=== PATIENT | female | born 1960 | race Caucasian/White ===

== ENCOUNTER 2017-08-12 05:37 | Outpatient (CLI) | payer BC ==
[~2017-08-12] VITALS: Ht 162.6 cm; Wt 68.9 kg
[2017-08-12] MEDS ORDERED: FENT1PAT6 TD (09:18)
[2017-08-12] MEDS ORDERED: LEVO50TA6 PO (09:18)
[2017-08-12] MEDS ORDERED: FENT1PAT8 TD (09:18)
[2017-08-12] MEDS ORDERED: BUDE10.2 IH (09:19)
[2017-08-12] MEDS ORDERED: ESTR1PAT53 TD (09:19)
[2017-08-12] MEDS ORDERED: MORP-33 PO (09:19)
[2017-08-12] MEDS ORDERED: CHOL500049 PO (09:19)
[2017-08-12] MEDS ORDERED: DULO60CA6 PO (09:19)
[2017-08-12] MEDS ORDERED: CYCL10TA9 PO (09:19)
== END 2017-08-12 09:49 ==
LOC: PREOP 05:37
PROVIDERS: ATTEND Orthopaedic Surgery
DX: Z01.818 Encounter for other preprocedural examination (principal); M54.9 Dorsalgia, unspecified

== ENCOUNTER 2017-08-23 05:59 | Day surgery (SDC) | payer BC ==
[~2017-08-23] VITALS: Ht 162.6 cm; Wt 68.9 kg
[~2017-08-23 05:59] MED LIST: BUDE10.2 IH; CHOL500049 PO; CYCL10TA9 PO; DULO60CA6 PO; ESTR1PAT53 TD; FENT1PAT6 TD; FENT1PAT8 TD; LEVO50TA6 PO; MORP-33 PO
--- OUTSIDE RECORDS SUMMARY | 2017-08-23 06:03 | XMS REPORT ---
Author Author [facility] Medical Staff Organization [facility] Address [address] [place], [place] [address] Phone [phone] Care Team Providers Care Railroad Car Repair Supervisor Name Role Phone VIVIAN CABA, TATI PP [phone] Summary purpose CCDA Sent to [facility] Chief Complaint and Reason for Visit No authorized Reason for Visit (Admitting Diagnosis) is available for this visit. Problem list No authorized problems tracked for continuity of care are available for this visit. Encounters No authorized problems tracked for encounter diagnoses are available for this visit. Medications No medications recorded for this patient visit Allergies, adverse reactions, alerts Allergen Category Ingredient Status Reaction Severity Onset Penicillins Drug Penicillins Active Increased heart rate Adolescence Codeine Drug Codeine Active Headache Adolescence Demerol Drug Demerol Active Unknown Adolescence Demerol Drug meperidine Active Unknown Adolescence fentanyl Drug fentanyl Active Weakness Adolescence Cephalexin Drug Cephalexin Active Unknown Adolescence Erythromycin Base Drug Erythromycin Base Active Increased heart rate Adolescence Immunizations No immunizations recorded for this patient visit Relevant diagnostic tests and/or laboratory data No authorized results are available for this patient visit History of procedures Procedure Code Code Type Description Date Performed Performing Physician 63980 CPT-4 N BLOCK, LUMBAR/THORACIC 12-25-2015 AYSHA ADAN J1040 CPT-4 METHLPREDNISOLONE ACETATE 12-25-2015 AYSHA ADAN Q9967 CPT-4 LOCM 300-399MG/ML IODINE,1ML 12-25-2015 AYSHA ADAN 75046 CPT-4 FLUOROGUIDE FOR SPINE INJECT 12-25-2015 AYSHA ADAN Functional status No functional or cognitive status observations are available for this visit. Vital signs No authorized vital signs are available for this visit. Social history No Social History or smoking status observations were recorded for this visit. ( Unknown if ever smoked.) Treatment Plan No treatment plan text is available for this visit. Hospital discharge instructions No discharge instruction text is available for this visit.
--- OUTSIDE RECORDS SUMMARY | 2017-08-23 06:03 | XMS REPORT ---
Author Author [facility] Medical Staff Organization [facility] Address [address] [place], [place] [address] Phone [phone] Care Team Providers Care Summer School Coordinator Name Role Phone VIVIAN CABA, TATI PP [phone] Summary purpose CCDA Sent to [facility] Chief Complaint and Reason for Visit No [...] visit Relevant diagnostic tests and/or laboratory data RESULTS CBC [id number]:42:00 Result Normal Range Units WBC 5.85 4.60-10.20 x 103/uL RBC L 3.92 4.04-6.13 x 106/uL Hemoglobin L 11.7 12.2-18.1 g/dl Hematocrit L 34.6 37.7-53.7 % MCV 88.3 80.0-97.0 FL MCH 29.8 27.0-31.2 pg MCHC 33.8 31.8-35.4 g/dl RDW 13.4 11.6-14.8 % Platelets 285 142-424 x 103/uL MPV 9.5 9.4-12.4 FL Manual Diff Not Indicated Neutrophil % 53.0 37-80 % Neutrophils 3.10 2.0-6.9 x 103/uL Lymphocyte % 32.6 10-50 % Lymphocytes 1.91 0.6-3.4 x 103/uL Monocyte % 10.3 0-12 % Monocytes 0.60 0.0-1.0 x 103/uL Eosinophil % 3.6 0-7 % Eosinophils 0.21 0-0.7 x 103/uL Basophil % 0.5 0-2 % Basophils 0.03 0.0-0.1 x 103/uL Hematology Group :42:00 Result Normal Range Units Sed Rate 15 5-20 MM/hr. Chemistry Group :42:00 Result Normal Range Units Glucose 84 70-99 mg/dl BUN 12 7-26 mg/dl Creatinine 0.9 0.6-1.3 mg/dl Sodium 139 136-145 mmol/L Potassium 3.8 3.5-5.1 mmol/L Chloride 106 98-107 mmol/L CO2 27 22-29 mmol/L BUN/Creatinine Ratio 13 7-25 Ratio Calcium 9.2 8.4-10.2 mg/dl Protein Total 6.8 6.4-8.3 g/dl Albumin 3.8 3.5-5.0 g/dl A/G Ratio 1.3 1.2-2.2 Ratio AST 17 5-34 U/L ALT 15 0-55 U/L ALP 72 40-150 U/L Bilirubin Total 0.4 0.2-1.2 mg/dl Osmolality 267 261-280 mOsm/kg Globulin 3.0 2.4-3.5 g/dl CK 68 30-170 U/L CKMB 1.2 <=6 ng/ml Troponin 0.00 <=0.20 ng/ml Magnesium 2.2 1.6-2.8 mg/dl Phosphorus 4.6 2.3-4.7 mg/dl TSH 2.21 0.35-4.94 uIU/mL Reference Lab Group :42:00 EKG See Manual Report Special Chemistry :42:00 Result Normal Range Units Vitamin D 25 L 24.3 30-100 ng/ml History of procedures Procedure Code Code Type Description Date Performed Performing Physician 55093 CPT-4 COMPLETE CBC W/AUTO DIFF WBC 03-25-2016 TATI PARK 79375 CPT-4 COMPREHEN METABOLIC PANEL 03-25-2016 TATI PARK 72150 CPT-4 RBC SED RATE, NONAUTOMATED 03-25-2016 TATI PARK 95266 CPT-4 ASSAY OF CK (CPK) 03-25-2016 [facility] 78834 CPT-4 CREATINE, MB FRACTION 03-25-2016 [facility] 77798 CPT-4 ASSAY OF TROPONIN, QUANT 03-25-2016 [facility] 40872 CPT-4 ASSAY OF VITAMIN D 03-25-2016 [facility] 19050 CPT-4 ASSAY THYROID STIM HORMONE 03-25-2016 [facility] 64253 CPT-4 ASSAY OF MAGNESIUM 03-25-2016 [facility] 76369 CPT-4 ASSAY OF PHOSPHORUS 03-25-2016 [facility] 21072 CPT-4 ELECTROCARDIOGRAM, TRACING 03-25-2016 [facility] 34352 CPT-4 ROUTINE VENIPUNCTURE 03-25-2016 [facility] Functional status No functional or cognitive status [...]
--- OUTSIDE RECORDS SUMMARY | 2017-08-23 06:03 | XMS REPORT ---
Author Author [facility] Medical Staff Organization [facility] Address [address] [place], [place] [address] Phone [phone] Care Team Providers Care Supervisor Farm Equipment Maintenance Name Role Phone VIVIAN CABA, TATI PP [phone] Summary purpose CCDA Sent to [facility] Chief Complaint and Reason for Visit No [...] Relevant diagnostic tests and/or laboratory data RESULTS Hematology Group :53:00 Result Normal Range Units Sed Rate 13 5-20 MM/hr. Chemistry Group :53:00 Result Normal Range Units CRP 0.03 0.00-0.50 mg/dl Reference Lab Group :53:00 Result Normal Range Units KIERA Screen A POSITIVE NEGATIVE TEST PERFORMED AT: [facility] [place] [address] [place] [address] HELLEN TAVERAS DO,MPH KIERA Pattern Reflex H 1:160 titer Reference Range <1:40Negative 1:40-1:80Low Antibody Level >1:80Elevated Antibody Level TEST PERFORMED AT: [facility] [place] [address] [place] [address] HELLEN TAVERAS DO,MPH Special Chemistry :53:00 Result Normal Range Units Vitamin D 25 L 27.3 30-100 ng/ml Vitamin B12 583 967-9011 pg/ml History of procedures Procedure Code Code Type Description Date Performed Performing Physician 82003 CPT-4 RBC SED RATE, NONAUTOMATED 10-30-2015 AYSHA ADAN 46397 CPT-4 ANTINUCLEAR ANTIBODIES 10-30-2015 AYSHA ADAN 73515 CPT-4 C-REACTIVE PROTEIN 10-30-2015 AYSHA ADAN 72547 CPT-4 ASSAY OF VITAMIN D 10-30-2015 AYSHA ADAN 47598 CPT-4 VITAMIN B-12 10-30-2015 AYSHA ADAN 06587 CPT-4 N BLOCK, LUMBAR/THORACIC 10-30-2015 AYSHA ADAN 12711 CPT-4 ROUTINE VENIPUNCTURE 10-30-2015 AYSHA ADAN J1040 CPT-4 METHLPREDNISOLONE ACETATE 10-30-2015 AYSHA ADAN Q9967 CPT-4 LOCM 300-399MG/ML IODINE,1ML 10-30-2015 AYSHA ADAN 37963 CPT-4 ANTINUCLEAR ANTIBODIES (KIERA) 10-30-2015 AYSHA ADAN 60649 CPT-4 FLUOROGUIDE FOR SPINE INJECT 10-30-2015 AYSHA ADAN Functional status No functional or [...]
--- OUTSIDE RECORDS SUMMARY | 2017-08-23 06:03 | XMS REPORT ---
Author Author [facility] Medical Staff Organization [facility] Address [address] [place], [place] [address] Phone [phone] Care Team Providers Care Intake Clerk Name Role Phone VIVIAN CABA, TATI PP [phone] Summary purpose CCDA Sent to [facility] Chief Complaint and Reason for Visit Admit Diagnosis 1 LUMBAGO Problem list No authorized problems tracked for continuity of care are available for this visit. Encounters No authorized problems tracked for encounter diagnoses are available for this visit. Medications No home medications recorded for this patient visit Allergies, [...] Code Type Description Date Performed Performing Physician 91982 CPT-4 N BLOCK LUMBAR/THORACIC 02-06-2015 AYSHA ADAN 01241 CPT-4 FLUOROGUIDE FOR SPINE INJECT 02-06-2015 AYSHA ADAN Functional status No functional or [...]
--- OUTSIDE RECORDS SUMMARY | 2017-08-23 06:03 | XMS REPORT ---
Author Author [facility] Medical Staff Organization [facility] Address [address] [place], [place] [address] Phone [phone] Care Team Providers Care Outsole Cementer Name Role Phone TATI PARK MD, PP [phone] Summary purpose CCDA Sent to [facility] Chief Complaint and Reason for Visit No [...] Code Type Description Date Performed Performing Physician 89607 CPT-4 TD VACCINE NO PRSRV >/=7 IM 09-12-2016 TATI PARK 95316 CPT-4 IRRIG DRUG DELIVERY DEVICE 09-12-2016 TATI PARK Functional status No functional or cognitive status [...]
--- OUTSIDE RECORDS SUMMARY | 2017-08-23 06:03 | XMS REPORT ---
Author Author [facility] Medical Staff Organization [facility] Address [address] [place], [place] [address] Phone [phone] Care Team Providers Care Leather Roller Name Role Phone VIVIAN CABA, TATI [phone] Summary purpose CCDA Sent to [facility] Chief Complaint and Reason for Visit Admit Diagnosis 1 URINARY INCONTINENCE/UNS Problem list No authorized problems tracked for [...] Code Type Description Date Performed Performing Physician 02196 CPT-4 CT ABD & PELV /> REGNS 07-23-2014 TATI PARK Q9967 CPT-4 LOCM 300-399MG/ML IODINE,1ML 07-23-2014 TATI PARK J7050 CPT-4 NORMAL SALINE SOLUTION INFUS 07-23-2014 TATI PARK Functional status No functional or [...]
--- OUTSIDE RECORDS SUMMARY | 2017-08-23 06:03 | XMS REPORT ---
Author Author [facility] Medical Staff Organization [facility] Address [address] [place], [place] [address] Phone [phone] Care Team Providers Care Disability Manager Name Role Phone VIVIAN CABA, TATI [phone] Summary purpose CCDA Sent to [facility] Chief Complaint and Reason for Visit [...] Code Type Description Date Performed Performing Physician 47705 CPT-4 N BLOCK, LUMBAR/THORACIC 11-04-2016 TATI PARK J1040 CPT-4 METHLPREDNISOLONE ACETATE 11-04-2016 TATI PARK Q9967 CPT-4 LOCM 300-399MG/ML IODINE,1ML 11-04-2016 TATI PARK Functional status No functional or [...]
--- OUTSIDE RECORDS SUMMARY | 2017-08-23 06:03 | XMS REPORT ---
Author Author [facility] Medical Staff Organization [facility] Address [address] [place], [place] [address] Phone [phone] Care Team Providers Care Ur Coordinator Name Role Phone VIVIAN CABA, TATI PP [phone] Summary purpose CCDA Sent to [facility] Chief Complaint and Reason for Visit [...] Code Type Description Date Performed Performing Physician 40240 CPT-4 N BLOCK, LUMBAR/THORACIC 01-14-2017 TATI PARK Q9967 CPT-4 LOCM 300-399MG/ML IODINE,1ML 01-14-2017 AYSHA ADAN J1040 CPT-4 METHLPREDNISOLONE ACETATE 01-14-2017 AYSHA ADAN Functional status No functional or [...]
--- OUTSIDE RECORDS SUMMARY | 2017-08-23 06:03 | XMS REPORT ---
Author Author [facility] Medical Staff Organization [facility] Address [address] [place], [place] [address] Phone [phone] Care Team Providers Care Carpenter Assistant Installer Name Role Phone VIVIAN CABA, TATI LAM [phone] Summary purpose CCDA Sent to [facility] Chief Complaint and Reason for Visit Admit Diagnosis 1 TICK BITE Problem list No authorized problems tracked for [...] Code Type Description Date Performed Performing Physician 25810 CPT-4 FRANCISELLA TULARENSIS 10-27-2016 TATI PARK 51262 CPT-4 EHRLICHIA ANTIBODY 10-27-2016 TATI PARK 75827 CPT-4 EHRLICHIA ANTIBODY 10-27-2016 TATI PARK 55289 CPT-4 RICKETTSIA ANTIBODY 10-27-2016 TATI PARK 21560 CPT-4 RICKETTSIA ANTIBODY 10-27-2016 TATI PARK 02048 CPT-4 LYME DISEASE ANTIBODY 10-27-2016 TATI PARK Functional status No functional or [...]
--- OUTSIDE RECORDS SUMMARY | 2017-08-23 06:03 | XMS REPORT ---
Author Author [facility] Medical Staff Organization [facility] Address [address] [place], [place] [address] Phone [phone] Care Team Providers Care Bottom Man Name Role Phone VIVIAN CABA, TATI [phone] Summary purpose CCDA Sent to [facility] Chief Complaint and Reason for Visit Admit Diagnosis 1 VITAMIN B DEFICIENCY NOS Problem list No authorized problems tracked for [...] Relevant diagnostic tests and/or laboratory data RESULTS Special Chemistry [id number]:04:00 Result Normal Range Units Vitamin B12 H 9194 632-4904 pg/ml History of procedures Procedure Code Code Type Description Date Performed Performing Physician 18201 CPT-4 VITAMIN B-12 10-05-2014 TATI PARK 51555 CPT-4 ROUTINE VENIPUNCTURE 10-05-2014 TATI PARK Functional status No functional or [...]
--- OUTSIDE RECORDS SUMMARY | 2017-08-23 06:03 | XMS REPORT ---
Author Author [facility] Medical Staff Organization [facility] Address [address] [place], [place] [address] Phone [phone] Care Team Providers Care Collection Correspondent Name Role Phone VIVIAN CABA, TATI [phone] Summary purpose CCDA Sent to [facility] Chief Complaint and Reason for Visit Admit Diagnosis 1 CHRONIC PAIN LOW BACK PN HYPOTHYROISM Problem list No authorized problems tracked for [...] Code Type Description Date Performed Performing Physician 44158 CPT-4 COMPREHEN METABOLIC PANEL 09-29-2016 TATI PARK 86956 CPT-4 ASSAY OF MAGNESIUM 09-29-2016 TATI PARK 34156 CPT-4 ASSAY THYROID STIM HORMONE 09-29-2016 TATI PARK 82547 CPT-4 LIPID PANEL 09-29-2016 TATI PARK 16036 CPT-4 ROUTINE VENIPUNCTURE 09-29-2016 TATI PARK 17527 CPT-4 COMPLETE CBC W/AUTO DIFF WBC 09-29-2016 TATI PARK Functional status No functional or [...]
--- OUTSIDE RECORDS SUMMARY | 2017-08-23 06:04 | XMS REPORT ---
Author Author [facility] Medical Staff Organization [facility] Address [address] [place], [place] [address] Phone [phone] Care Team Providers Care Certified Physician'S Assistant Name Role Phone VIVIAN CABA, TATI PP [phone] Summary purpose CCDA Sent to [facility] Chief Complaint and Reason for Visit No [...] diagnostic tests and/or laboratory data RESULTS CBC [id number]:58:00 Result Normal Range Units WBC 7.92 4.60-10.20 x 103/uL RBC L 3.94 4.04-6.13 x 106/uL Hemoglobin L 11.5 12.2-18.1 g/dl Hematocrit L 34.7 37.7-53.7 % MCV 88.1 80.0-97.0 FL MCH 29.2 27.0-31.2 pg MCHC 33.1 31.8-35.4 g/dl RDW 14.1 11.6-14.8 % Platelets 297 142-424 x 103/uL MPV 9.5 9.4-12.4 FL Manual Diff Not Indicated Neutrophil % 55.4 37-80 % Neutrophils 4.39 2.0-6.9 x 103/uL Lymphocyte % 31.4 10-50 % Lymphocytes 2.49 0.6-3.4 x 103/uL Monocyte % 7.6 0-12 % Monocytes 0.60 0.0-1.0 x 103/uL Eosinophil % 5.1 0-7 % Eosinophils 0.40 0-0.7 x 103/uL Basophil % 0.5 0-2 % Basophils 0.04 0.0-0.1 x 103/uL Coagulation Group [id number]:58:00 Result Normal Range Units Protime 9.7 9.6-11.9 Sec INR 0.9 PTT 26.7 23-30 Sec Chemistry Group [id number]:00 Result Normal Range Units Glucose 89 70-99 mg/dl BUN 16 7-26 mg/dl Creatinine 0.9 0.6-1.3 mg/dl Sodium 138 136-145 mmol/L Potassium 3.7 3.5-5.1 mmol/L Chloride 102 98-107 mmol/L CO2 28 22-29 mmol/L BUN/Creatinine Ratio 18 7-25 Ratio Calcium 9.4 8.4-10.2 mg/dl Protein Total 6.9 6.4-8.3 g/dl Albumin 3.9 3.5-5.0 g/dl A/G Ratio 1.3 1.2-2.2 Ratio AST 18 5-34 U/L ALT 9 0-55 U/L ALP 63 40-150 U/L Bilirubin Total 0.4 0.2-1.2 mg/dl Osmolality 267 261-280 mOsm/kg Globulin 3.0 2.4-3.5 g/dl Reference Lab Group [id number]:00 EKG See Manual Report History of procedures Procedure Code Code Type Description Date Performed Performing Physician 03142 CPT-4 COMPLETE CBC W/AUTO DIFF WBC 09-12-2015 [facility] 70088 CPT-4 COMPREHEN METABOLIC PANEL 09-12-2015 [facility] 04323 CPT-4 ELECTROCARDIOGRAM, TRACING 09-12-2015 [facility] 62674 CPT-4 PROTHROMBIN TIME 09-12-2015 [facility] 54972 CPT-4 THROMBOPLASTIN TIME, PARTIAL 09-12-2015 [facility] 04789 CPT-4 CHEST X-RAY 09-12-2015 [facility] 24107 CPT-4 ROUTINE VENIPUNCTURE 09-12-2015 [facility] Functional status No functional or cognitive status [...]
--- OUTSIDE RECORDS SUMMARY | 2017-08-23 06:04 | XMS REPORT ---
Author Author [facility] Medical Staff Organization [facility] Address [address] [place], [place] [address] Phone [phone] Care Team Providers Care Copywriting Intern Name Role Phone VIVIAN CABA, TATI LAM [phone] Summary purpose CCDA Sent to [facility] Chief Complaint and Reason for Visit Admit Diagnosis 1 LOW BACK PAIN Problem list No authorized problems tracked for [...] Code Type Description Date Performed Performing Physician 24415 CPT-4 N BLOCK, LUMBAR/THORACIC 08-12-2016 TATI PARK J1040 CPT-4 METHLPREDNISOLONE ACETATE 08-12-2016 TATI PARK Q9967 CPT-4 LOCM 300-399MG/ML IODINE,1ML 08-12-2016 TATI PARK Functional status No functional or [...]
--- OUTSIDE RECORDS SUMMARY | 2017-08-23 06:04 | XMS REPORT ---
Author Author [facility] Medical Staff Organization [facility] Address [address] [place], [place] [address] Phone [phone] Care Team Providers Care Delivery Of Shopping News Name Role Phone VIVIAN CABA, TATI [phone] Summary purpose CCDA Sent to [facility] Chief Complaint and Reason for [...] Code Type Description Date Performed Performing Physician 35879 CPT-4 INJECT SPINE LUMBAR/SACRAL 09-19-2014 TATI PARK J1040 CPT-4 METHYLPREDNISOLONE 80 MG INJ 09-19-2014 TATI PARK Q9967 CPT-4 LOCM 300-399MG/ML IODINE,1ML 09-19-2014 TATI PARK 00068 CPT-4 FLUOROGUIDE FOR SPINE INJECT 09-19-2014 TATI PARK Functional status No functional or [...]
--- OUTSIDE RECORDS SUMMARY | 2017-08-23 06:04 | XMS REPORT ---
Author Author [facility] Medical Staff Organization [facility] Address [address] [place], [place] [address] Phone [phone] Care Team Providers Care Boxing Machine Operator Name Role Phone VIVIAN CABA, TATI [phone] Summary purpose CCDA Sent to [facility] Chief Complaint and Reason for Visit Admit Diagnosis 1 OT SCREEN MAMMOGRAM Problem list No authorized problems tracked for [...] Code Type Description Date Performed Performing Physician 24453 CPT-4 COMP SCREEN MAMMOGRAM ADD-ON 01-15-2015 TATI PARK G0202 CPT-4 SCREENINGMAMMOGRAPHYDIGITAL 01-15-2015 TATI PARK Functional status No functional or [...]
--- OUTSIDE RECORDS SUMMARY | 2017-08-23 06:04 | XMS REPORT ---
Author Author [facility] Medical Staff Organization [facility] Address [address] [place], [place] [address] Phone [phone] Care Team Providers Care Entomology Professor Name Role Phone VIVIAN CABA, TATI [phone] Summary purpose CCDA Sent to [facility] Chief Complaint and Reason for [...] Code Type Description Date Performed Performing Physician 49192 CPT-4 MRI LUMBAR SPINE W/O DYE 06-05-2016 TATI PARK 48430 CPT-4 MRI JNT OF LWR EXTRE W/O DYE 06-05-2016 TATI PARK 63502 CPT-4 MRI JNT OF LWR EXTRE W/O DYE 06-05-2016 TATI PARK Functional status No functional or [...]
--- OUTSIDE RECORDS SUMMARY | 2017-08-23 06:04 | XMS REPORT ---
Author Author [facility] Medical Staff Organization [facility] Address [address] [place], [place] [address] Phone [phone] Care Team Providers Care Full Service Supervisor Name Role Phone VIVAIN CABA, TATI [phone] Summary purpose CCDA Sent to [facility] Chief Complaint and Reason for Visit Admit Diagnosis 1 OTR DISEASES OF LUNG NOS Problem list No authorized problems tracked [...] Code Type Description Date Performed Performing Physician 69874 CPT-4 CT THORAX W/DYE 12-03-2014 TATI PARK Q9967 CPT-4 LOCM 300-399MG/ML IODINE,1ML 12-03-2014 TAIT PARK J7050 CPT-4 NORMAL SALINE SOLUTION INFUS 12-03-2014 TATI PARK Functional status No functional or [...]
--- OUTSIDE RECORDS SUMMARY | 2017-08-23 06:04 | XMS REPORT ---
Author Author [facility] Medical Staff Organization [facility] Address [address] [place], [place] [address] Phone [phone] Care Team Providers Care Piling Setter Name Role Phone VIVIAN CABA, TATI PP [phone] Summary purpose CCDA Sent to [facility] Chief Complaint and Reason for Visit [...] Code Type Description Date Performed Performing Physician 54793 CPT-4 ELECTROCARDIOGRAM REPORT 09-12-2015 TATI PARK Functional status No functional or [...]
--- OUTSIDE RECORDS SUMMARY | 2017-08-23 06:04 | XMS REPORT ---
Author Author [facility] Medical Staff Organization [facility] Address [address] [place], [place] [address] Phone [phone] Care Team Providers Care Business Support Administrator Name Role Phone TATI PARK MD PP [phone] Summary purpose CCDA Sent to [facility] Chief Complaint and Reason for Visit Admit Diagnosis 1 SCRN MAMMO Problem list No authorized problems tracked for [...] Code Type Description Date Performed Performing Physician 63212 CPT-4 SCR MAMMO BI INCL CAD 10-12-2016 TATI PARK Functional status No functional or [...]
--- OUTSIDE RECORDS SUMMARY | 2017-08-23 06:04 | XMS REPORT ---
Author Author [facility] Medical Staff Organization [facility] Address [address] [place], [place] [address] Phone [phone] Care Team Providers Care Freight Coordinator Name Role Phone TATI PARK MD PP [phone] Summary purpose CCDA Sent to [facility] Chief Complaint and Reason for Visit No [...] for this patient visit History of procedures No procedures recorded for this patient visit. Functional status No functional or cognitive status [...]
--- OUTSIDE RECORDS SUMMARY | 2017-08-23 06:04 | XMS REPORT ---
Author Author [facility] Medical Staff Organization [facility] Address [address] [place], [place] [address] Phone [phone] Care Team Providers Care Tyre Builder Name Role Phone VIVIAN CABA, TATI PP [phone] Summary purpose CCDA Sent to [facility] Chief Complaint and Reason for Visit Admit Diagnosis 1 URINARY INCONTINENCE OTH Problem list No authorized problems tracked for [...] Code Type Description Date Performed Performing Physician 83087 CPT-4 US EXAM ABDO BACK WALL COMP 07-10-2014 TATI PARK Functional status No functional or [...]
--- OUTSIDE RECORDS SUMMARY | 2017-08-23 06:04 | XMS REPORT ---
Author Author [facility] Medical Staff Organization [facility] Address [address] [place], [place] [address] Phone [phone] Care Team Providers Care Machine Bookkeeper Name Role Phone VIVIAN CABA, TATI [phone] Summary purpose CCDA Sent to [facility] Chief Complaint and Reason for Visit [...] Code Type Description Date Performed Performing Physician 58271 CPT-4 N BLOCK LUMBAR/THORACIC 02-13-2015 TATI PARK J1040 CPT-4 METHYLPREDNISOLONE 80 MG INJ 02-13-2015 TATI PARK Q9967 CPT-4 LOCM 300-399MG/ML IODINE,1ML 02-13-2015 TATI PARK 78777 CPT-4 FLUOROGUIDE FOR SPINE INJECT 02-13-2015 TATI PARK Functional status No functional or [...]
--- OUTSIDE RECORDS SUMMARY | 2017-08-23 06:04 | XMS REPORT ---
Author Author [facility] Medical Staff Organization [facility] Address [address] [place], [place] [address] Phone [phone] Care Team Providers Care Acquisitions Librarian Name Role Phone TATI PARK MD PP [phone] Summary purpose CCDA Sent to [facility] Chief Complaint and Reason for [...]
--- OUTSIDE RECORDS SUMMARY | 2017-08-23 06:04 | XMS REPORT ---
Author Author [facility] Medical Staff Organization [facility] Address [address] [place], [place] [address] Phone [phone] Care Team Providers Care Major Appliance Assembly Supervisor Name Role Phone VIVIAN CABA, TATI PP [phone] Summary purpose CCDA Sent to [facility] [...] Code Type Description Date Performed Performing Physician 67646 CPT-4 INJECT SACROILIAC JOINT 01-30-2015 AYSHA ADAN J1040 CPT-4 METHYLPREDNISOLONE 80 MG INJ 01-30-2015 AYSHA ADAN Q9967 CPT-4 LOCM 300-399MG/ML IODINE,1ML 01-30-2015 AYSHA ADAN 54606 CPT-4 FLUOROGUIDE FOR SPINE INJECT 01-30-2015 AYSHA ADAN Functional status No functional or [...]
--- OUTSIDE RECORDS SUMMARY | 2017-08-23 06:04 | XMS REPORT ---
Author Author [facility] Medical Staff Organization [facility] Address [address] [place], [place] [address] Phone [phone] Care Team Providers Care Security Compliance Engineer Name Role Phone VIVIAN CABA, TATI [phone] Summary purpose CCDA Sent to [facility] Chief Complaint and Reason for [...] Code Type Description Date Performed Performing Physician J1040 CPT-4 METHLPREDNISOLONE ACETATE 01-29-2016 TATI PARK Q9967 CPT-4 LOCM 300-399MG/ML IODINE,1ML 01-29-2016 TATI PARK 52182 CPT-4 N BLOCK, LUMBAR/THORACIC 01-29-2016 TATI PARK Functional status No functional or [...]
--- OUTSIDE RECORDS SUMMARY | 2017-08-23 06:05 | XMS REPORT ---
Author Author [facility] Medical Staff Organization [facility] Address [address] [place], [place] [address] Phone [phone] Care Team Providers Care Internal Medicine Hospitalist Name Role Phone VIVIAN CABA, TATI [phone] Summary purpose CCDA Sent to [facility] Chief Complaint and Reason for Visit [...] Code Type Description Date Performed Performing Physician 37198 CPT-4 N BLOCK, LUMBAR/THORACIC 10-09-2015 TATI PARK J1040 CPT-4 METHLPREDNISOLONE ACETATE 10-09-2015 TATI PARK Q9967 CPT-4 LOCM 300-399MG/ML IODINE,1ML 10-09-2015 TATI PARK 88780 CPT-4 FLUOROGUIDE FOR SPINE INJECT 10-09-2015 TATI PARK Functional status No functional or [...]
--- OUTSIDE RECORDS SUMMARY | 2017-08-23 06:05 | XMS REPORT ---
Author Author [facility] Medical Staff Organization [facility] Address [address] [place], [place] [address] Phone [phone] Care Team Providers Care Systems Protection Technician Name Role Phone VIVIAN CABA, TATI PP [phone] Summary purpose CCDA Sent to [facility] Chief Complaint and Reason for Visit [...] Code Type Description Date Performed Performing Physician 55999 CPT-4 N BLOCK LUMBAR/THORACIC 02-20-2015 AYSHA ADAN J1040 CPT-4 METHYLPREDNISOLONE 80 MG INJ 02-20-2015 AYSHA ADAN 55624 CPT-4 FLUOROGUIDE FOR SPINE INJECT 02-20-2015 AYSHA ADAN Functional status No functional or [...]
--- OUTSIDE RECORDS SUMMARY | 2017-08-23 06:05 | XMS REPORT ---
Author Author [facility] Medical Staff Organization [facility] Address [address] [place], [place] [address] Phone [phone] Care Team Providers Care Medical Detailist Name Role Phone VIVIAN CABA, TATI [phone] Summary purpose CCDA Sent to [facility] Chief Complaint and Reason for Visit [...] Code Type Description Date Performed Performing Physician 87025 CPT-4 MRI BRAIN W/O & W/DYE 11-01-2015 TATI PARK A9579 CPT-4 ALICIA-BASE MR CONTRAST NOS,1ML 11-01-2015 TATI PARK Functional status No functional or [...]
--- OUTSIDE RECORDS SUMMARY | 2017-08-23 06:05 | XMS REPORT ---
Author Author [facility] Medical Staff Organization [facility] Address [address] [place], [place] [address] Phone [phone] Care Team Providers Care Corporate Development Manager Name Role Phone VIVIAN CABA, TATI PP [phone] Summary purpose CCDA Sent to [facility] Chief Complaint and Reason for Visit [...] Code Type Description Date Performed Performing Physician 53521 CPT-4 N BLOCK, LUMBAR/THORACIC 04-22-2016 AYSHA ADAN J1040 CPT-4 METHLPREDNISOLONE ACETATE 04-22-2016 AYSHA ADAN Q9967 CPT-4 LOCM 300-399MG/ML IODINE,1ML 04-22-2016 AYSHA ADAN Functional status No functional or [...]
--- OUTSIDE RECORDS SUMMARY | 2017-08-23 06:05 | XMS REPORT ---
Author Author [facility] Medical Staff Organization [facility] Address [address] [place], [place] [address] Phone [phone] Care Team Providers Care Education Managers Name Role Phone VIVIAN CABA, TATI [phone] Summary purpose CCDA Sent to [facility] Chief Complaint and Reason for [...] Code Type Description Date Performed Performing Physician 28994 CPT-4 CT THORAX W/DYE 08-09-2015 TATI PARK Q9967 CPT-4 LOCM 300-399MG/ML IODINE,1ML 08-09-2015 TATI PARK J7050 CPT-4 NS SOLUTION 250 CC INFUSION 08-09-2015 TATI PARK Functional status No functional or [...]
--- OUTSIDE RECORDS SUMMARY | 2017-08-23 06:05 | XMS REPORT ---
Author Author [facility] Medical Staff Organization [facility] Address [address] [place], [place] [address] Phone [phone] Care Team Providers Care Anode Adjuster Name Role Phone TATI PARK MD PP [phone] Summary purpose CCDA Sent to [facility] Chief Complaint and Reason for Visit Admit [...] Code Type Description Date Performed Performing Physician 33576 CPT-4 THERAPEUTIC EXERCISES 07-09-2014 [facility] [address]351 CPT-4 THERAPEUTIC EXERCISES 07-13-2014 [facility] 31227 CPT-4 THERAPEUTIC EXERCISES 07-16-2014 [facility] [address]8633 CPT-4 THERAPEUTIC EXERCISES 07-20-2014 [facility] 54214 CPT-4 THERAPEUTIC EXERCISES 07-24-2014 [facility] 66565 CPT-4 THERAPEUTIC EXERCISES 07-26-2014 [facility] [address]6089 CPT-4 THERAPEUTIC EXERCISES 07-30-2014 [facility] Functional status No functional or cognitive status [...]
--- OUTSIDE RECORDS SUMMARY | 2017-08-23 06:05 | XMS REPORT ---
Author Author [facility] Medical Staff Organization [facility] Address [address] [place], [place] [address] Phone [phone] Care Team Providers Care Creamery Worker Name Role Phone VIVIAN CABA, TATI [phone] Summary purpose CCDA Sent to [facility] Chief Complaint and Reason for Visit No [...] Relevant diagnostic tests and/or laboratory data RESULTS Chemistry Group [id number] Result Normal Range Units Triglycerides 129 0-149 mg/dl Cholesterol H 250 0-199 mg/dl HDL H 71 40-60 mg/dl LDL H 153 0-130 mg/dl VLDL H 26 0-21 mg/dl Reference Lab Group [id number] Result Normal Range Units Insulin 4.5 2.0-19.6 uIU/mL This insulin assay shows strong cross-reactivity for some insulin analogs (lispro, aspart, and glargine) and much lower cross-reactivity with others (detemir, glulisine). TEST PERFORMED AT: [facility] [address] [place] [address] HELLEN TAVERAS DO,MPH History of procedures Procedure Code Code Type Description Date Performed Performing Physician 73906 CPT-4 LIPID PANEL 03-27-2016 TATI PARK 36090 CPT-4 ASSAY OF INSULIN 03-27-2016 [facility] 75811 CPT-4 ROUTINE VENIPUNCTURE 03-27-2016 [facility] Functional status No functional or cognitive status [...]
--- OUTSIDE RECORDS SUMMARY | 2017-08-23 06:05 | XMS REPORT ---
Author Author [facility] Medical Staff Organization [facility] Address [address] [place], [place] [address] Phone [phone] Care Team Providers Care Waste Recycler Name Role Phone VIVIAN CABA, TATI PP [phone] Summary purpose CCDA Sent to [facility] Chief Complaint and Reason for Visit [...] Code Type Description Date Performed Performing Physician 34703 CPT-4 ELECTROCARDIOGRAM REPORT 03-25-2016 TATI PARK Functional status No functional or [...]
--- OUTSIDE RECORDS SUMMARY | 2017-08-23 06:09 | XMS REPORT | Continuity of Care Document ---
Author Author [facility] Address Unknown Phone Unavailable Allergies Active Description Code Type Severity Reaction Onset Reported/Identified Relationship to Patient Clinical Status Yes CODEINE Drug Allergy N/A N/A Yes cephalexin [id number] Drug Mild N/A Yes codeine s14658 Drug Mild N/A Yes doxycycline a84054 Drug Moderate HIVES Yes erythromycin b41320 Drug Mild N/A Yes fentaNYL r53014 Drug Mild N/A Yes Lyrica e27687 Drug Moderate N/A Yes meperidine r68570 Drug Mild N/A Yes No Known Allergies [id number] Drug Allergy N/A N/A 07/24/2009 Confirmed but inactive Yes Cephalexin Drug Allergy N/A N/A 10/28/2012 Yes Cephalexin 2716 Drug Allergy N/ A Unknown 10/28/2012 Yes Codeine 1550 Drug Allergy N/A Headache 10/28/2012 Yes Codeine Drug Allergy N/A N/A 10/28/2012 Yes Demerol Drug Allergy N/A N/A 10/28/2012 Yes Demerol 3853 Drug Allergy N/A Unknown 10/28/2012 Yes Erythromycin Base 2755 Drug Allergy N/A Increased heart rate 10/28/2012 Yes Erythromycin Base Drug Allergy N/A N/A 10/28/2012 Yes fentanyl Drug Allergy N/A N/A 10/28/2012 Yes fentanyl 3571 Drug Allergy N/A Weakness 10/28/2012 Yes Penicillins 476 Drug Allergy N/ A Increased heart rate 10/28/2012 Yes Penicillins Drug Allergy N/A N/A 10/28/2012 Yes cephalexin [id number] Drug Allergy Mild TACHYCARDIA 08/12/2017 Yes codeine [id number] Drug Allergy Mild HEADACHE 08/12/2017 Yes doxycycline [id number] Drug Allergy Mild HIVES 08/12/2017 Yes erythromycin base [id number] Drug Allergy Mild TACHYCARDIA 08/12/2017 Yes pregabalin [id number] Drug Allergy Mild ANGER ISSUES 08/12/2017 Yes meperidine [id number] Drug Allergy Unknown N/A 08/12/2017 Medications There is no data. Problems Date Dx Coded Attending Type Code Diagnosis Diagnosed By 02/09/2011 D 041.81 BACTERIAL MYCOPLASMA 02/09/2011 D 288.60 LEUKOCYTOSIS NOS 02/09/2011 D 786.05 SHORTNESS OF BREATH 02/09/2011 D 786.2 COUGH 03/25/2011 D 786.05 SHORTNESS OF BREATH 03/25/2011 D 786.2 COUGH 06/25/2011 D 706.2 SEBACEOUS CYST 07/13/2011 D 041.81 BACTERIAL MYCOPLASMA 07/13/2011 D 514 PULM CONGEST/ HYPOSTASIS 07/13/2011 D 780.79 OTHER MALAISE & FATIGUE 07/13/2011 D 786.2 COUGH 07/20/2011 D 483.0 PNEUMONIA/ MYCOPLASMA PNE 07/20/2011 D 514 PULM CONGEST/ HYPOSTASIS 07/20/2011 D 780.96 GENERALIZED PAIN 07/20/2011 D 786.2 COUGH 07/21/2011 D 483.0 PNEUMONIA/ MYCOPLASMA PNE 07/21/2011 D 514 PULM CONGEST/ HYPOSTASIS 07/21/2011 D 786.2 COUGH 07/21/2011 D V76.12 OT SCREEN MAMMOGRAM 07/24/2011 D V49.81 ASYMPT POSTMENO STATE 07/24/2011 D V82.81 SCREENING OSTEOPOROSIS 10/26/2012 CAITY HERNANDEZ MD 305.1 TOBACCO USE DISORDER 10/26/2012 CAITY HERNANDEZ MD 780.79 OTHER MALAISE & FATIGUE 10/26/2012 CAITY HERNANDEZ MD 786.05 SHORTNESS OF BREATH 10/26/2012 CAITY HERNANDEZ MD 786.2 COUGH 10/28/2012 CAITY HERNANDEZ MD 780.4 DIZZINESS AND GIDDINESS 10/28/2012 CAITY HERNANDEZ MD 780.79 OTHER MALAISE & FATIGUE 10/28/2012 CAITY HERNANDEZ MD 780.97 ALTERED MENTAL STATUS 10/28/2012 CAITY HERNANDEZ MD 781.2 ABNORMALITY OF GAIT 10/28/2012 CAITY HERNANDEZ MD 786.05 SHORTNESS OF BREATH 10/28/2012 CAITY HERNANDEZ MD 780.4 DIZZINESS AND GIDDINESS 10/28/2012 HILL MD, CAITY L D 780.79 OTHER MALAISE & FATIGUE 10/28/2012 CAITY HERNANDEZ MD L D 780.97 ALTERED MENTAL STATUS 10/28/2012 CAITY HERNANDEZ MD 781.2 ABNORMALITY OF GAIT 10/28/2012 CAITY HERNANDEZ MD 786.05 SHORTNESS OF BREATH 11/07/2012 CAITY HERNANDEZ MD V76.12 OT SCREEN MAMMOGRAM 03/10/2013 CAITY HERNANDEZ MD 041.81 BACTERIAL MYCOPLASMA 03/10/2013 CAITY HERNANDEZ MD 733.90 BONE CARTILAGE DIS NOS 03/10/2013 CAITY HERNANDEZ MD 780.60 FEVER NOS 03/10/2013 CAITY HERNANDEZ MD 780.79 OTHER MALAISE & FATIGUE 05/15/2013 CAITY HERNANDEZ MD L Lauren 719.45 JOINT PAIN-PELVIS 05/15/2013 CAITY HERNANDEZ MD L Lauren 724.2 LUMBAGO 05/23/2013 CAITY HERNANDEZ MD L D 722.6 DISC DEGENERATION NOS 05/23/2013 CAITY HERNANDEZ MD L D 724.2 LUMBAGO 05/23/2013 CAITY HERNANDEZ MD L D 729.2 NEURALGIA/NEURITIS NOS 06/08/2013 CAITY HERNANDEZ MD L D 722.10 LUMBAR DISC DISPLACEMENT 06/08/2013 CAITY HERNANDEZ MD L D 722.52 LUMB/LUMBOSAC DISC DEGEN 06/08/2013 CAITY HERNANDEZ MD L D 724.02 SP STENOSIS-LUMB S BRUCE 06/08/2013 CAITY HERNANDEZ MD L D 724.4 LUMBOSACRAL NEURITIS NOS 06/08/2013 CAITY HERNANDEZ MD L D 729.2 NEURALGIA/NEURITIS NOS 06/22/2013 CAITY HERNANDEZ MD L D 722.10 LUMBAR DISC DISPLACEMENT 06/22/2013 CAITY HERNANDEZ MD L D 722.52 LUMB/LUMBOSAC DISC DEGEN 06/22/2013 CAITY HERNANDEZ MD L D 724.4 LUMBOSACRAL NEURITIS NOS 06/22/2013 CAITY HERNANDEZ MD L D 729.2 NEURALGIA/NEURITIS NOS 07/06/2013 CAITY HERNANDEZ MD L D 719.45 JOINT PAIN-PELVIS 07/06/2013 CAITY HERNANDEZ MD L D 724.2 LUMBAGO 07/06/2013 CAITY HERNANDEZ MD 729.5 PAIN IN LIMB 09/07/2013 CAITY HERNANDEZ MD 625.9 FEM GENITAL SYMPTOMS NOS 09/07/2013 CAITY HERNANDEZ MD 789.00 ABDOMINAL PAIN, UNSPECIF 09/11/2013 CAITY HERNANDEZ MD 558.9 NONINF GASTROENTERIT NEC 09/11/2013 CAITY HERNANDEZ MD 564.00 CONSTIPATION NOS 09/11/2013 CAITY HERNANDEZ MD 719.45 JOINT PAIN-PELVIS 09/11/2013 CAITY HERNANDEZ MD 724.5 BACKACHE NOS 09/11/2013 CAITY HERNANDEZ MD 724.79 DISORDER OF COCCYX NEC 09/11/2013 CAITY HERNANDEZ MD 780.79 OTHER MALAISE & FATIGUE 09/13/2013 CAITY HERNANDEZ MD 787.91 DIARRHEA 09/19/2013 CAITY HERNANDEZ MD 719.45 JOINT PAIN-PELVIS 09/19/2013 CAITY HERNANDEZ MD 724.2 LUMBAGO 09/29/2013 CAITY HERNANDEZ MD 244.9 HYPOTHYROIDISM NOS 09/29/2013 CAITY HERNANDEZ MD 496 CHR AIRWAY OBSTRUCT NEC 09/29/2013 CAITY HERNANDEZ MD 530.81 ESOPHAGEAL REFLUX 09/29/2013 CAITY HERNANDEZ MD 780.79 OTHER MALAISE & FATIGUE 10/09/2013 CAITY HERNANDEZ MD 789.00 ABDOMINAL PAIN, UNSPECIF 10/12/2013 CAITY HERNANDEZ MD 724.5 BACKACHE NOS 10/12/2013 CAITY HERNANDEZ MD 729.2 NEURALGIA/NEURITIS NOS 10/12/2013 CAITY HERNANDEZ MD 789.02 ABDOMINAL PAIN LT UPP QU 11/22/2013 CAITY HERNANDEZ MD 724.2 LUMBAGO 11/27/2013 CAITY HERNANDEZ MD V76.12 OT SCREEN MAMMOGRAM 02/14/2014 LUZ ELENA RAMIREZ MD, NICOLETTE Aguilar 724.2 LUMBAGO 04/04/2014 CAITY HERNANDEZ MD 724.2 LUMBAGO 04/04/2014 CAITY HERNANDEZ MD 729.2 NEURALGIA/NEURITIS NOS 06/09/2014 JAYMIE HOFFMAN MD 724.2 LUMBAGO 06/09/2014 JAYMIE HOFFMAN MD 729.2 NEURALGIA/NEURITIS NOS 06/09/2014 JAYMIE HOFFMAN MD 780.79 OTHER MALAISE & FATIGUE 06/13/2014 CAITY HERNANDEZ MD 724.2 LUMBAGO 06/13/2014 VIVIAN CABA, CAITY Aguilar 729.2 NEURALGIA/NEURITIS NOS 07/30/2014 JAYMIE HOFFMAN MD 724.2 LUMBAGO 07/30/2014 JAYMIE HOFFMAN MD 729.2 NEURALGIA/NEURITIS NOS 07/30/2014 JAYMIE HOFFMAN MD 780.79 OTHER MALAISE & FATIGUE 09/19/2014 CAITY HERNANDEZ MD 724.2 LUMBAGO 10/05/2014 CAITY HERNANDEZ MD 266.9 VITAMIN B DEFICIENCY NOS 12/03/2014 VIVIAN CABA, CAITY Aguilar 518.89 OTR DISEASES OF LUNG NOS 01/15/2015 VIVIAN CABA, CAITY Aguilar V76.12 OT SCREEN MAMMOGRAM 01/30/2015 LOCO CABA, AYSHA Aguilar 719.45 JOINT PAIN-PELVIS 01/30/2015 AYSHA ADAN MD 724.2 LUMBAGO 02/06/2015 AYSHA ADAN MD 719.45 JOINT PAIN-PELVIS 02/06/2015 LOCO CABA, AYSHA Aguilar 724.2 LUMBAGO 02/13/2015 CAITY HERNANDEZ MD M25.559 Pain in unspecified hip 02/13/2015 CAITY HERNANDEZ MD M54.5 Low back pain 02/20/2015 LOCO CABA, AYSHA Aguilar M25.559 Pain in unspecified hip 02/20/2015 LOCO CABA, AYSHA Aguilar M54.5 Low back pain 08/09/2015 D J47.9 Bronchiectasis , uncomplicated 08/09/2015 D R91.1 Solitary pulmonary nodule 08/09/2015 D Z72.0 Tobacco use 09/12/2015 VIVIAN CABA, CAITY Aguilar Z01.818 Encounter for other preprocedural examination 09/12/2015 VIVIAN CABA, CAITY Aguilar Z01.818 Encounter for other preprocedural examination 10/09/2015 VIVIAN CABA, CAITY Aguilar M54.5 Low back pain 10/30/2015 LOCO CABA, AYSHA Aguilar M54.9 Dorsalgia, unspecified 10/30/2015 AYSHA ADAN MD R20.0 Anesthesia of skin 10/30/2015 AYSHA ADAN MD R26.81 Unsteadiness on feet 10/30/2015 LOCO CABA, AYSHA Aguilar R53.83 Other fatigue 11/01/2015 VIVIAN CABA, CAITY Aguilar R26.89 Other abnormalities of gait and mobility 11/01/2015 VIVIAN CABA, CAITY Aguilar R29.6 Repeated falls 11/01/2015 CAITY HERNANDEZ MD R42 Dizziness and giddiness 11/01/2015 CAITY HERNANDEZ MD R53.83 Other fatigue 12/25/2015 AYSHA ADAN MD M54.5 Low back pain 01/29/2016 CAITY HERNANDEZ MD M54.5 Low back pain 03/25/2016 CAITY HERNANDEZ MD E03.9 Hypothyroidism, unspecified 03/25/2016 CAITY HERNANDEZ MD E55.9 Vitamin D deficiency, unspecified 03/25/2016 CAITY HERNANDEZ MD R00.0 Tachycardia, unspecified 03/25/2016 CAITY HERNANDEZ MD R53.83 Other fatigue 03/25/2016 VIVIAN CABA, CAITY Aguilar Z87.891 Personal history of nicotine dependence 03/27/2016 VIVIAN CABA, CAITY Aguilar E78.5 Hyperlipidemia, unspecified 03/27/2016 CAITY HERNANDEZ MD R73.9 Hyperglycemia, unspecified 04/22/2016 AYSHA ADAN MD M54.5 Low back pain 06/05/2016 CAITY HERNANDEZ MD M25.551 Pain in right hip 06/05/2016 CAITY HERNANDEZ MD M25.552 Pain in left hip 06/05/2016 CAITY HERNANDEZ MD M46.07 Spinal enthesopathy, lumbosacral region 06/05/2016 CAITY HERNANDEZ MD M54.5 Low back pain 08/12/2016 CAITY HERNANDEZ MD G89.29 Other chronic pain 08/12/2016 CAITY HERNANDEZ MD M54.5 Low back pain 09/12/2016 CAITY HERNANDEZ MD Z45.2 Encounter for adjustment and management of VAD 09/29/2016 CAITY HERNANDEZ MD E03.9 Hypothyroidism, unspecified 09/29/2016 CAITY HERNANDEZ MD E78.5 Hyperlipidemia, unspecified 09/29/2016 CAITY HERNANDEZ MD G89.29 Other chronic pain 09/29/2016 CAITY HERNANDEZ MD M19.90 Unspecified osteoarthritis, unspecified site 09/29/2016 CAITY HERNANDEZ MD M54.5 Low back pain 10/12/2016 CAITY HERNANDEZ MD Z13.9 Encounter for screening, unspecified 10/27/2016 CAITY HERNANDEZ MD W57.XXXA Bit/stung by nonvenom insect & oth nonvenom arthropods, init 10/27/2016 CAITY HERNANDEZ MD Y92.[address] or not applicable 10/27/2016 CAITY HERNANDEZ MD Y93.9 Activity, unspecified 10/27/2016 CAITY HERNANDEZ MD Y99.9 Unspecified external cause status 10/27/2016 CAITY HERNANDEZ MD Z13.9 Encounter for screening, unspecified 11/04/2016 CAITY HERNANDEZ MD M54.5 Low back pain 11/04/2016 CAITY HERNANDEZ MD S52.90XD Unsp fracture of unsp forearm, subs for clos fx w routn heal 11/04/2016 CAITY HERNANDEZ MD W19.XXXD Unspecified fall, subsequent encounter 11/04/2016 CAITY HERNANDEZ MD Y92.[address] or not applicable 11/04/2016 CAITY HERNANDEZ MD Y93.9 Activity, unspecified 11/04/2016 CAITY HERNANDEZ MD Y99.9 Unspecified external cause status 01/14/2017 LOCO CABA, AYSHA Aguilar M54.5 Low back pain 05/12/2017 CAITY HERNANDEZ MD E03.9 Hypothyroidism, unspecified 05/12/2017 VIVIAN CABA, CAITY Pearson D M54.89 Other dorsalgia 08/16/2017 LUZ ELENA HUAALVARO Ot M54.9 DORSALGIA, UNSPECIFIED 08/16/2017 ALVARO LAGUNA DO Ot Z01.818 ENCOUNTER FOR OTHER PREPROCEDURAL EXAMIN Procedures Code [place] [address] ROUTINE VENIPUNCTURE VIVIAN CABA, CAITY Pearson 02/09/2011 73458 CHEST X-RAY VIVIAN CABA, CAITY Pearson 02/09/2011 90102 COMPREHEN METABOLIC PANEL VIVIAN CABA, CAITY Pearson 02/09/2011 25642 COMPLETE CBC W/AUTO DIFF WBC VIVIAN CABA, CAITY Pearson 02/09/2011 51170 MYCOPLASMA ANTIBODY VIVIAN CABA, CAITY Pearson 02/09/2011 02138 BREATHING CAPACITY TEST VIVIAN CABA, CAITY Pearson 03/25/2011 80132 LUNG FUNCTION TEST (MBC/MVV ) VIVIAN CABA, CAITY Pearson 03/25/2011 96089 LUNG NITROGEN WASHOUT CURVE VIVIAN CABA, CAITY Pearson 03/25/2011 37738 MONOXIDE DIFFUSING CAPACITY VIVIAN CABA, CAITY Pearson 03/25/2011 35102 EXC TR-EXT B9+JULIAN 1.1-2 CM VIVIAN CABA, CAITY Pearson 06/25/2011 72269 ROUTINE VENIPUNCTURE CAITY HERNANDEZ MD 07/13/2011 83280 COMPREHEN METABOLIC PANEL VIVIAN CABA, CAITY Pearson 07/13/2011 12294 ASSAY THYROID STIM HORMONE VIVIAN CABA, CAITY Pearson 07/13/2011 18808 COMPLETE CBC W/AUTO DIFF WBC VIVIAN CABA, CAITY Pearson 07/13/2011 78589 HELICOBACTER PYLORI VIVIAN CABA, CAITY Pearson 07/13/2011 84455 MYCOPLASMA ANTIBODY VIVIAN CABA, CAITY Pearson 07/13/2011 16555 ROUTINE VENIPUNCTURE CAITY HERNANDEZ MD 07/20/2011 17902 ASSAY OF FREE THYROXINE VIVIAN CABA, CAITY Pearson 07/20/2011 90852 ASSAY THYROID STIM HORMONE CAITY HERNANDEZ MD 07/20/2011 80214 FREE ASSAY (FT-3) VIVIAN CABA, CAITY Pearson 07/20/2011 77717 COMPLETE CBC W/AUTO DIFF WBC VIVIAN CABA, CAITY Pearson 07/20/2011 66546 RBC SED RATE, NONAUTOMATED VIVIAN CABA, CAITY Pearson 07/20/2011 97439 HETEROPHILE ANTIBODIES VIVIAN CABA, CAITY Pearson 07/20/2011 89609 MYCOPLASMA ANTIBODY VIVIAN CABA, CAITY Pearson 07/20/2011 71581 AG DETECT NOS, EIA, MULT VIVIAN CABA, CAITY L 07/20/2011 53394 INFLUENZA ASSAY W/OPTIC VIVIAN CABA, CAITY L 07/20/2011 91325 CHEST X-RAY VIVIAN CABA, CAITY Pearson 07/21/2011 71776 COMP SCREEN MAMMOGRAM ADD- ON VIVIAN CABA, CAITY Pearson 07/21/2011 31818 MAMMOGRAM, SCREENING VIVIAN CABA, CAITY Pearson 07/21/2011 32175 DXA BONE DENSITY, AXIAL VIVIAN CABA, CAITY Pearson 07/24/2011 24201 ROUTINE VENIPUNCTURE VIVIAN CABA, CAITY Pearson 10/26/2012 43408 CHEST X-RAY VIVIAN CABA, CAITY Pearson 10/26/2012 05384 COMPREHEN METABOLIC PANEL VIVIAN CABA, CAITY L 10/26/2012 03495 LIPID PANEL VIVIAN CABA, CAITY L 10/26/2012 75090 ASSAY THYROID STIM HORMONE VIVIAN CABA, CAITY Pearson 10/26/2012 99215 COMPLETE CBC W/AUTO DIFF WBC VIVIAN CABA, CAITY Pearson 10/26/2012 44126 RBC SED RATE, NONAUTOMATED VIVIAN CABA, CAITY L 10/26/2012 57064 ANTINUCLEAR ANTIBODIES VIVIAN CABA, CAITY Pearson 10/26/2012 18150 RHEUMATOID FACTOR, YANET HERNANDEZ MD, CAITY Pearson 10/26/2012 12446 WITHDRAWAL OF ARTERIAL BLOOD VIVIAN CABA, CAITY Pearson 10/28/[address] HEAD/BRAIN W/O & W/GENOVEVA HERNANDEZ MD, CAITY Pearson 10/28/2012 16787 CHEST X-RAY VIVIAN CABA, CAITY Pearson 10/28/2012 65646 COMPREHEN METABOLIC PANEL VIVIAN CABA, CAITY L 10/28/2012 10117 ASSAY OF CK (CPK) VIVIAN CABA, CAITY L 10/28/2012 78409 CREATINE, MB FRACTION VIVIAN CABA, CAITY L 10/28/2012 13315 BLOOD GASES: PH, PO2 & PCO2 VIVAIN CABA, CAITY Pearson 10/28/2012 51424 ASSAY OF MAGNESIUM VIVIAN CABA, CATIY Pearson 10/28/2012 39812 ASSAY OF PHOSPHORUS VIVIAN CABA, CAITY Pearson 10/28/2012 33710 ASSAY OF TROPONIN, YANET HERNANDEZ MD, CAITY Pearson 10/28/2012 18133 COMPLETE CBC W/AUTO DIFF WBC VIVIAN CABA, CAITY L 10/28/2012 85006 ELECTROCARDIOGRAM, TRACING VIVIAN CABA, CAITY Pearson 10/28/2012 G0378 HOSPITAL OBSERVATION PER HR VIVIAN CABA, CAITY Pearson 10/28/2012 Q9967 LOCM 300-399MG/ML IODINE, 1ML VIVIAN CABA, CAITY L 10/28/2012 36757 ELECTROCARDIOGRAM REPORT VIVIAN CABA, CAITY Pearson 10/28/2012 39172 COMP SCREEN MAMMOGRAM ADD- ON VIVIAN CABA, CAITY Pearson 11/07/2012 40837 MAMMOGRAM, SCREENING VIVIAN CABA, CAITY Pearson 11/07/2012 93087 ROUTINE VENIPUNCTURE VIVIAN CABA, CAITY Pearson 03/10/2013 01343 COMPREHEN METABOLIC PANEL VIVIAN CABA, CAITY Pearson 03/10/2013 97676 URINALYSIS, AUTO W/SCOPE VIVIAN CABA, CAITY Pearson 03/10/2013 37412 ASSAY OF CK (CPK) VIVIAN CABA, CAITY Pearson 03/10/2013 07016 ASSAY THYROID STIM HORMONE VIVIAN CABA, CAITY L 03/10/2013 71884 COMPLETE CBC W/AUTO DIFF WBC VIVIAN CABA, CAIYT Pearson 03/10/2013 73081 MYCOPLASMA ANTIBODY VIVIAN CABA, CAITY L 03/10/2013 41215 AG DETECT NOS, EIA, MULT VIVIAN CABA, CAITY L 03/10/2013 74382 X-RAY EXAM OF LOWER SPINE VIVIAN CABA, CAITY L 05/15/2013 45325 X-RAY EXAM OF HIP VIVIAN CABA, CAITY L 05/15/2013 73189 MRI LUMBAR SPINE W/O GENOVEVA HERNANDEZ MD, CAITY L 05/23/2013 07279 INJECT SPINE L/S (CD) VIVIAN CABA, CAITY L 06/08/2013 86113 FLUOROGUIDE FOR SPINE INJECT VIVIAN CABA, CAITY L 06/08/2013 J1040 METHLPREDNISOLONE DIEGO HERNANDEZ MD, CAITY L 06/08/2013 Q9967 LOCM 300-399MG/ML IODINE, 1MLili HERNANDEZ MD, CAITY L 06/08/2013 74008 INJECT SPINE L/S (CD) VIVIAN CABA, CAITY L 06/22/2013 99465 FLUOROGUIDE FOR SPINE INJECT VIVIAN CABA, CAITY L 06/22/2013 J1040 METHLPREDNISOLONE DIEGO HERNANDEZ MD, CAITY L 06/22/2013 Q9967 LOCM 300-399MG/ML IODINE, MIGUEL HERNANDEZ MD, CAITY L 06/22/2013 91909 INJECT SPINE L/S (CD) VIVIAN CABA, CAITY Pearson 07/06/2013 04882 FLUOROGUIDE FOR SPINE INJECT VIVIAN CABA, CAITY Pearson 07/06/2013 J1040 METHLPREDNISOLONE ACETATE VIVIAN CABA, CAITY Pearson 07/06/2013 Q9967 LOCM 300-399MG/ML IODINE, 1ML VIVIAN CABA, CAITY Pearson 07/06/[address] ABD&PELV 1+ SECTION/ REGNS VIVIAN CABA, CAITY Pearson 09/07/2013 Q9967 LOCM 300-399MG/ML IODINE, 1MLili HERNANDEZ MD, CAITY Pearson 09/07/2013 85288 ROUTINE VENIPUNCTURE VIVIAN CABA, CAITY Pearson 09/11/2013 28801 COMPREHEN METABOLIC PANEL VIVIAN CABA, CAITY Pearson 09/11/2013 30814 VITAMIN B-12 VIVIAN CABA, CAITY Pearson 09/11/2013 32340 ASSAY THYROID STIM HORMONE VIVIAN CABA, CAITY Pearson 09/11/2013 07763 COMPLETE CBC W/AUTO DIFF WBC VIVIAN CABA, CAITY Pearson 09/11/2013 59450 BLOOD SEROLOGY, QUALITATIVE VIVIAN CABA, CAITY Pearson 09/11/2013 55917 SPECIMEN CONCENTRATION VIVIAN CABA, CAITY Pearson 09/13/2013 05280 FECES CULTURE, BACTERIA VIVIAN CABA, CAITY Pearson 09/13/2013 29220 SMEAR, GRAM STAIN VIVIAN CABA, CAITY Pearson 09/13/2013 26623 CLOSTRIDIUM AG, EIA VIVIAN CABA, CAITY L 09/13/2013 46944 CRYPTOSPORIDIUM AG, EIA VIVIAN CABA, CAITY Pearson 09/13/2013 18089 GIARDIA AG, EIA VIVIAN CABA, CAITY Pearson 09/13/2013 10083 AG DETECT NOS, EIA, MULT VIVIAN CABA, CAITY L 09/13/2013 19103 AGENT NOS ASSAY W/OPTIC VIVIAN CABA, CAITY Pearson 09/13/2013 08077 MRI PELVIS W/O DYE VIVIAN CABA, CAITY Pearson 09/19/2013 63973 ROUTINE VENIPUNCTURE VIVIAN CABA, CAITY Pearson 09/29/2013 92962 RBC SED RATE, NONAUTOMATED VIVIAN CABA, CAITY Pearson 09/29/2013 36436 ANTINUCLEAR ANTIBODIES VIVIAN CABA, CAITY Pearson 09/29/2013 15415 C-REACTIVE PROTEIN VIVIAN CABA, CAITY Pearson 09/29/2013 73140 ROUTINE VENIPUNCTURE VIVIAN CABA, CAITY Pearson 10/09/2013 58064 COMPREHEN METABOLIC PANEL VIVIAN CABA, CAITY Pearson 10/09/2013 60575 ASSAY OF AMYLASE VIVIAN CABA, CAITY Pearson 10/09/2013 27316 ASSAY OF LIPASE VIVIAN CABA, CAITY Pearson 10/09/2013 92328 COMPLETE CBC W/AUTO DIFF WBC VIVIAN CABA, CAITY Pearson 10/09/2013 72188 HELICOBACTER PYLORI VIVIAN CABA, CAITY Pearson 10/09/[address] ABD&PELV 1+ SECTION/ REGNS VIVIAN CABA, CAITY Pearson 10/12/2013 Q9967 LOCM 300-399MG/ML IODINE, 1ML VIVIAN CABA, CAITY Pearson 10/12/2013 93430 N BLOCK INJ, SCIATIC, SNG VIVIAN CABA, CAITY Pearson 11/22/2013 85012 FLUOROGUIDE FOR SPINE INJECT VIVIAN CABA, CAITY Pearson 11/22/2013 J1040 METHLPREDNISOLONE ACETATE VIVIAN CABA, CAITY Pearson 11/22/2013 53787 COMP SCREEN MAMMOGRAM ADD- ON VIVIAN CABA, CAITY Pearson 11/27/2013 G0202 SCREENINGMAMMOGRAPHYDIGITAL VIVIAN CABA, CAITY Pearson 11/27/2013 90444 INJECT SPINE L/S (CD) LUZ ELENA RAMIREZ MD, NICOLETTE Lockwood 02/14/2014 03542 FLUOROGUIDE FOR SPINE INJECT LUZ ELENA RAMIREZ MD, NICOLETTE Lockwood 02/14/2014 J1040 METHLPREDNISOLONE DIEGO LAGUNA II, MD, NICOLETTE Lockwood 02/14/2014 Q9967 LOCM 300-399MG/ML IODINE, 1ML LUZ ELENA RAMIREZ MD, NICOLETTE Lockwood 02/14/2014 79636 INJECT SPINE L/S (CD) LOCO CABA, AYSHA Rao 04/04/2014 39519 FLUOROGUIDE FOR SPINE INJECT LOCO CABA, AYSHA Rao 04/04/2014 J1040 METHLPREDNISOLONE DIEGO ADAN MD, AYSHA Rao 04/04/2014 Q9967 LOCM 300-399MG/ML IODINE, 1ML LOCO CABA, AYSHA Rao 04/04/2014 04217 PT EVALUATION JAYMIE HOFFMAN MD 05/17/2014 17968 MECHANICAL TRACTION THERAPY JAYMIE HOFFMAN MD 05/17/2014 98157 MECHANICAL TRACTION THERAPY JAYMIE HOFFMAN MD 05/22/2014 76367 MECHANICAL TRACTION THERAPY JAYMIE HOFFMAN MD 05/24/2014 42962 MECHANICAL TRACTION THERAPY DALTON CABA, [facility] 05/25/2014 15375 MECHANICAL TRACTION THERAPY DALTON CABA, [facility] 05/29/2014 32572 MECHANICAL TRACTION THERAPY DALTON CABA, [facility] 05/31/2014 45040 MECHANICAL TRACTION THERAPY [facility] 06/01/2014 05624 THERAPEUTIC EXERCISES DALTON CABA, [facility] 06/01/2014 18943 MECHANICAL TRACTION THERAPY [facility]ALTON CABA, [facility] 06/05/2014 83041 THERAPEUTIC EXERCISES DALTON CABA, [facility] 06/05/2014 95496 MECHANICAL TRACTION THERAPY [facility]ALTON CABA, [facility] 06/07/2014 42493 MECHANICAL TRACTION THERAPY [facility]TON [facility], [facility] 06/08/2014 46651 INJECT SPINE L/S (CD) FABY CHAPMAN MD 06/13/2014 77132 FLUOROGUIDE FOR SPINE INJECT ADELA CABA, FABY Burnett 06/13/2014 J1040 METHLPREDNISOLONE ACETATE ADELA CABA, FABY Burnett 06/13/2014 Q9967 LOCM 300-399MG/ML IODINE, 1ML FABY CHAPMAN MD 06/13/2014 97333 THERAPEUTIC EXERCISES [facility]TON [facility] 07/09/2014 27627 THERAPEUTIC EXERCISES [facility]TON [facility], [facility] 07/13/2014 41555 THERAPEUTIC EXERCISES DALTON CABA, [facility] 07/16/2014 47461 THERAPEUTIC EXERCISES [facility]ALTON [facility], [facility] 07/20/2014 08390 THERAPEUTIC EXERCISES DALTON CABA, [facility] Allyssa 07/24/2014 82276 THERAPEUTIC EXERCISES [facility] 07/26/2014 60198 THERAPEUTIC EXERCISES [facility], JAYMIE 07/30/2014 18306 INJECT SPINE L/S (CD) [facility], [facility] 09/19/2014 30707 FLUOROGUIDE FOR SPINE INJECT [facility], [facility] 09/19/2014 J1040 METHLPREDNISOLONE ACETATE [facility], [facility] 09/19/2014 Q9967 LOCM 300-399MG/ML IODINE, 1ML [facility], [facility] 09/19/2014 12830 ROUTINE VENIPUNCTURE [facility], [facility] 10/05/2014 44436 VITAMIN B-12 [facility], [facility] 10/05/[address] THORAX W/GENOVEVA HERNANDEZ MD, [facility] 12/03/2014 J7050 NS SOLUTION 250 CC INFUSION [facility], [facility] 12/03/2014 Q9967 LOCM 300-399MG/ML IODINE, 1ML [facility], [facility] 12/03/2014 25802 COMP SCREEN MAMMOGRAM ADD- ON [facility], [facility] 01/15/2015 G0202 SCREENINGMAMMOGRAPHYDIGITAL [facility], [facility] 01/15/2015 86976 INJECT SACROILIAC JOINT [facility], AYSHA Rao 01/30/2015 96294 FLUOROGUIDE FOR SPINE INJECT [facility], AYSHA Rao 01/30/2015 J1040 METHLPREDNISOLONE ACETATE [facility], AYSHA Rao 01/30/2015 Q9967 LOCM 300-399MG/ML IODINE, 1ML [facility], AYSHA Rao 01/30/2015 86124 N BLOCK LUMBAR/THORACIC [facility], AYSHA Rao 02/06/2015 34077 FLUOROGUIDE FOR SPINE INJECT [facility], AYSHA Rao 02/06/2015 83957 N BLOCK LUMBAR/THORACIC [facility], [facility] 02/13/2015 27691 FLUOROGUIDE FOR SPINE INJECT [facility], [facility] Pearson 02/13/2015 J1040 METHYLPREDNISOLONE 80 MG INJ [facility], [facility] Pearson 02/13/2015 Q9967 LOCM 300-399MG/ML IODINE, 1ML [facility], [facility] 02/13/2015 95237 N RODNEY LUMBAR/THORACIC [facility], AYSHA Rao 02/20/2015 87927 FLUOROSCOPE EXAMINATION [facility], AYSHA Rao 02/20/2015 78311 FLUOROGUIDE FOR SPINE INJECT [facility], AYSHA Rao 02/20/2015 J1040 METHYLPREDNISOLONE 80 MG INJ [facility], AYSHA Rao 02/20/[address] THORAX W/GENOVEVA HERNANDEZ MD, [facility] 08/09/2015 J7050 NORMAL SALINE SOLUTION INFUS [facility], [facility] 08/09/2015 Q9967 LOCM 300-399MG/ML IODINE, 1ML [facility], [facility] Pearson 08/09/2015 27136 ROUTINE VENIPUNCTURE [facility], [facility] Pearson 09/12/2015 23783 CHEST X-RAY 2VW FRONTAL& LATL [facility], CA[facility] Lili 09/12/2015 89104 COMPREHEN METABOLIC PANEL [facility], CA[facility] Lili 09/12/2015 90048 COMPLETE CBC W/AUTO DIFF WBC [facility], CA[facility] Lili 09/12/2015 62818 PROTHROMBIN TIME [facility], CA[facility] Lili 09/12/2015 48422 THROMBOPLASTIN TIME PARTIAL [facility], [facility] Pearson 09/12/2015 33235 ELECTROCARDIOGRAM TRACING [facility], [facility] Pearson 09/12/2015 51618 ELECTROCARDIOGRAM REPORT [facility], [facility] Lili 09/12/2015 10588 N BLOCK LUMBAR/THORACIC [facility], CA[facility] Pearson 10/09/2015 43287 FLUOROSCOPE EXAMINATION [facility], CA[facility] Pearson 10/09/2015 29354 FLUOROGUIDE FOR SPINE INJECT [facility], CA[facility] Pearson 10/09/2015 J1040 METHYLPREDNISOLONE 80 MG INJ [facility], CA[facility] Pearson 10/09/2015 Q9967 LOCM 300-399MG/ML IODINE, 1ML [facility], [facility] Pearson 10/09/2015 96815 ROUTINE VENIPUNCTURE [facility], AYSHA Rao 10/30/2015 13396 N BLOCK LUMBAR/THORACIC [facility], AYSHA Rao 10/30/2015 98932 FLUOROSCOPE EXAMINATION [facility], AYSHA Rao 10/30/2015 97485 FLUOROGUIDE FOR SPINE INJECT [facility], AYSHA Rao 10/30/2015 87404 VITAMIN D 25 HYDROXY [facility], AYSHA Rao 10/30/2015 25981 VITAMIN B-12 [facility], AYSHA Rao 10/30/2015 22956 RBC SED RATE NONAUTOMATED [facility], AYSHA Rao 10/30/2015 08391 ANTINUCLEAR ANTIBODIES [facility], AYSHA Rao 10/30/2015 26114 ANTINUCLEAR ANTIBODIES (KIERA ) [facility], AYSHA Rao 10/30/2015 68676 C-REACTIVE PROTEIN [facility], AYSHA Rao 10/30/2015 J1040 METHYLPREDNISOLONE 80 MG INJ [facility], AYSHA Rao 10/30/2015 Q9967 LOCM 300-399MG/ML IODINE, 1ML LOCO CABA, AYSHA Rao 10/30/2015 93314 MRI BRAIN STEM W/O & W/DYE VIVIAN CABA, CAITY Pearson 11/01/2015 A9579 ALICIA-BASE MR CONTRAST NOS, 1ML VIVIAN CABA, CAITY Pearson 11/01/2015 94892 N RODNEY LUMBAR/THORACIC LOCO CABA, AYSHA Rao 12/25/2015 57429 FLUOROSCOPE EXAMINATION LOCO CABA, AYSHA Rao 12/25/2015 49996 FLUOROGUIDE FOR SPINE INJECT LOCO CABA, AYSHA Rao 12/25/2015 J1040 METHYLPREDNISOLONE 80 MG INJ LOCO CABA, AYSHA Rao 12/25/2015 Q9967 LOCM 300-399MG/ML IODINE, 1ML LOCO CABA, AYSHA Rao 12/25/2015 86178 INJECT SPINE LUMBAR/SACRAL VIVIAN CABA, CAITY Pearson 01/29/2016 65837 N RODNEY LUMBAR/THORACIC VIVIAN CABA, CAITY Pearson 01/29/2016 J1040 METHYLPREDNISOLONE 80 MG INJ VIVIAN CABA, CAITY Pearson 01/29/2016 Q9967 LOCM 300-399MG/ML IODINE, 1ML VIVIAN CABA, CAITY Pearson 01/29/2016 76143 ROUTINE VENIPUNCTURE VIVIAN CABA, CAITY Pearson 03/25/2016 27272 COMPREHEN METABOLIC PANEL VIVIAN CABA, CAITY Pearson 03/25/2016 38297 VITAMIN D 25 HYDROXY VIVIAN CABA, CAITY Pearson 03/25/2016 41133 ASSAY OF CK (CPK) VIVIAN CABA, CAITY Pearson 03/25/2016 40708 CREATINE MB FRACTION VIVIAN CABA, CAITY Pearson 03/25/2016 31707 ASSAY OF MAGNESIUM VIVIAN CABA, CAITY Pearson 03/25/2016 66925 ASSAY OF PHOSPHORUS VIVIAN CABA, CAITY Pearson 03/25/2016 90313 ASSAY THYROID STIM HORMONE VIVIAN CABA, CAITY Pearson 03/25/2016 19392 ASSAY OF TROPONIN QUANT VIVIAN CABA, CAITY Pearson 03/25/2016 06564 COMPLETE CBC W/AUTO DIFF WBC VIVIAN CABA, CAITY Pearson 03/25/2016 29557 RBC SED RATE NONAUTOMATED VIVIAN CABA, CAITY Pearson 03/25/2016 60819 ELECTROCARDIOGRAM TRACING VIVIAN CABA, CAITY Pearson 03/25/2016 16049 ROUTINE VENIPUNCTURE VIVIAN CABA, CAITY Pearson 03/27/2016 61193 LIPID PANEL VIVIAN CABA, CAITY Pearson 03/27/2016 53766 ASSAY OF INSULIN VIVIAN CABA, CAITY Pearson 03/27/2016 13030 N RODNEY LUMBAR/THORACIC LOCO CABA, AYSHA Rao 04/22/2016 J1040 METHYLPREDNISOLONE 80 MG INJ LOCO CABA, AYSHA Rao 04/22/2016 Q9967 LOCM 300-399MG/ML IODINE, 1ML LOCO CABA, AYSHA Rao 04/22/2016 13065 MRI LUMBAR SPINE W/O GENOVEVA HERNANDEZ MD, CAITY Pearson 06/05/2016 48832 MRI JNT OF LWR EXTRE W/O GENOVEVA HERNANDEZ MD, CAITY Pearson 06/05/2016 79677 N RODNEY LUMBAR/THORACIC VIVIAN CABA, CAITY Pearson 08/12/2016 J1040 METHYLPREDNISOLONE 80 MG INJ VIVIAN CABA, CAITY Pearson 08/12/2016 Q9967 LOCM 300-399MG/ML IODINE, 1ML VIVIAN CABA, CAITY Pearson 08/12/2016 66049 TD VACC NO PRESV 7 YRS+ IM VIVIAN CABA, CAITY Pearson 09/12/2016 09815 IRRIG DRUG DELIVERY DEVICE VIVIAN CABA, CAITY Pearson 09/12/2016 44262 ROUTINE VENIPUNCTURE VIVIAN CABA, CAITY Pearson 09/29/2016 98770 COMPREHEN METABOLIC PANEL VIVIAN CABA, CAITY Pearson 09/29/2016 51544 LIPID PANEL VIVIAN CABA, CAITY Pearson 09/29/2016 55987 ASSAY OF MAGNESIUM VIVIAN CABA, CAITY Pearson 09/29/2016 94367 ASSAY THYROID STIM HORMONE VIVIAN CABA, CAITY Pearson 09/29/2016 85942 COMPLETE CBC W/AUTO DIFF WBC VIVIAN CABA, CAITY Pearson 09/29/2016 70746 SCR MAMMO BI INCL CAD VIVIAN CABA, CAITY Lili 10/12/2016 55644 ROUTINE VENIPUNCTURE VIVIAN CABA, CAITY Pearson 10/27/2016 63700 LYME DISEASE ANTIBODY VIVIAN CABA, CAITY Pearson 10/27/2016 36557 EHRLICHIA ANTIBODY VIVIAN CABA, CAITY Lili 10/27/2016 58911 FRANCISELLA TULARENSIS VIVIAN CABA, CAITY Lili 10/27/2016 32914 RICKETTSIA ANTIBODY VIVIAN CABA, CAITY Lili 10/27/2016 00215 N RODNEY MARTIN/GEOVANY HERNANDEZ MD, CAITY Pearson 11/04/2016 J1040 METHYLPREDNISOLONE 80 MG INJ VIVIAN CABA, CAITY Pearson 11/04/2016 Q9967 LOCM 300-399MG/ML IODINE, 1ML VIVIAN CABA, CAITY Pearson 11/04/2016 32981 N BLOCK LUMBAR/THORACIC VIVIAN CABA, CAITY Pearson 01/14/2017 J1040 METHYLPREDNISOLONE 80 MG INJ LOCO CABA, AYSHA Rao 01/14/2017 Q9967 LOCM 300-399MG/ML IODINE, 1ML LOCO CABA, AYSHA Rao 01/14/2017 78226 Magnetic resonance (eg, proton) imaging, spinal canal and contents, thoracic; without contrast material 05/05/2017 75297 Magnetic resonance (eg, proton) imaging, spinal canal and contents, cervical; without contrast material.. 05/05/2017 23052 CULTURE AEROBIC IDENTIFY VIVIAN CABA, CAITY Pearson 05/12/2017 11903 URINE CULTURE/COLONY COUNT VIVIAN CABA, CAITY Pearson 05/12/2017 58042 MICROBE SUSCEPTIBLE ULICES VIVIAN CABA, CAITY Pearson 05/12/2017 Results Test Result Range COMPLETE BLOOD COUNT - 10/26/12 07:44 Platelet 266 10^3u 142-424 MPV 10.5 FL 9.4-12.4 Upton # 0.90 10^3u 0.0-1.0 RBC 4.51 10^6u 4.04-6.13 Upton % 9.1 % 0-12 RDW 13.9 % 11.6-14.8 Neut # 5.74 10^3u 2.0-6.9 Neut % 57.9 % 37-80 WBC 9.92 10^3u 4.60-10.20 MCV 91.4 FL 80.0-97.0 Baso # 0.02 10^3u 0.0-0.1 Baso % 0.2 % 0-2 Eos # 0.28 10^3u 0-0.7 Eos % 2.8 % 0-7 Lymph % 30.0 % 10-50 MCHC 34.5 G/DL 31.8-35.4 MCH 31.5 PG 27.0-31.2 Lymph # 2.98 10^3u 0.6-3.4 HGB 14.2 G/DL 12.2-18.1 HCT 41.2 % 37.7-53.7 Sed Rate (ESR) - 10/26/12 07:44 Sed Rate (ESR) 2 MM/hr 5-20 TSH - 10/26/12 07:44 TSH 3.47 UIUML 0.35-4.94 CMP - 10/26/12 07:44 Osmo Calculated 273 MOSM 261-280 Sodium 143 MMOLL 137-145 T. Protein 7.2 G/DL 6.3-8.2 Potassium 4.6 MMOLL 3.6-5.0 T Bili 0.7 MG/DL 0.2-1.3 Calcium 9.6 MG/DL 8.4-10.2 BUN 9 MG/DL 7-21 Chloride 105 MMOLL 98-107 AST 20 U/L 15-46 ALT 29 U/L 7-56 Albumin 4.4 G/DL 3.5-5.0 A/G Ratio 1.6 RATIO 1.2-2.2 Bun/Creat 9.6 RATIO 7-25 Alk Phos 69 U/L 38-126 CO2 27 MMOLL 22-30 Glucose 88 MG/DL 65-110 Globulin 2.8 2.4-3.5 Creatinine 0.9 MG/DL 0.7-1.5 Lipid Profile - 10/26/12 07:44 HDL 69.1 MG/DL 35-100 VLDL 23 0-21 Triglyceride 115 MG/DL 35-160 Cholesterol 216 MG/DL 130-200 LDL Calculated 124 0-130 Rheumatoid Factor - 10/26/12 07:44 Rheumatoid Factor 11 IU/mL <14 KIERA Screen - 10/26/12 07:44 KIERA Screen NEGATIVE NEGATIVE Arterial Blood Gas - 10/28/12 11:30 O2/L ROOMAIR L pCO2 32 mmHg 35-45 HCO3 23 MMOLL 22-26 pH 7.46 Units 7.35-7.45 Total CO2 23 MMOLL 23-27 pO2 119 mmHg 75-90 Base Excess -1 MMOLL -2-+2 O2 Sat 99 % 96-97 COMPLETE BLOOD COUNT - 10/28/12 11:30 Platelet 249 10^3u 142-424 MPV 11.0 FL 9.4-12.4 Upton # 0.69 10^3u 0.0-1.0 RBC 4.35 10^6u 4.04-6.13 Upton % 9.6 % 0-12 RDW 13.4 % 11.6-14.8 Neut # 4.62 10^3u 2.0-6.9 Neut % 63.9 % 37-80 WBC 7.22 10^3u 4.60-10.20 MCV 89.2 FL 80.0-97.0 Baso # 0.02 10^3u 0.0-0.1 Baso % 0.3 % 0-2 Eos # 0.10 10^3u 0-0.7 Eos % 1.4 % 0-7 Lymph % 24.8 % 10-50 MCHC 35.3 G/DL 31.8-35.4 MCH 31.5 PG 27.0-31.2 Lymph # 1.79 10^3u 0.6-3.4 HGB 13.7 G/DL 12.2-18.1 HCT 38.8 % 37.7-53.7 CMP - 10/28/12 11:30 Osmo Calculated 258 MOSM 261-280 Sodium 134 MMOLL 137-145 T. Protein 7.5 G/DL 6.3-8.2 Potassium 3.8 MMOLL 3.6-5.0 T Bili 0.5 MG/DL 0.2-1.3 Calcium 9.2 MG/DL 8.4-10.2 BUN 9 MG/DL 7-21 Chloride 100 MMOLL 98-107 AST 32 U/L 15-46 ALT 28 U/L 7-56 Albumin 4.4 G/DL 3.5-5.0 A/G Ratio 1.4 RATIO 1.2-2.2 Bun/Creat 10.6 RATIO 7-25 Alk Phos 85 U/L 38-126 CO2 23 MMOLL 22-30 Glucose 96 MG/DL 65-110 Globulin 3.1 2.4-3.5 Creatinine 0.8 MG/DL 0.7-1.5 Magnesium - 10/28/12 11:30 Magnesium 1.8 MG/DL 1.7-2.2 Phosphorus - 10/28/12 11:30 Phosphorus 3.9 MG/DL 2.5-4.5 Cardiac Panel - 10/28/12 11:30 CKMB 1.1 NG/ML <=6 Troponin I 0.01 NG/ML <=0.20 CPK 105 U/L 30-170 EKG - 10/28/12 11:30 EKG SMR COMPLETE BLOOD COUNT - 03/10/13 12:20 Platelet 285 10^3u 142-424 MPV 10.4 FL 9.4-12.4 Upton # 0.81 10^3u 0.0-1.0 RBC 4.44 10^6u 4.04-6.13 Upton % 8.7 % 0-12 RDW 13.5 % 11.6-14.8 Neut # 5.96 10^3u 2.0-6.9 Neut % 64.4 % 37-80 WBC 9.26 10^3u 4.60-10.20 MCV 92.1 FL 80.0-97.0 Baso # 0.02 10^3u 0.0-0.1 Baso % 0.2 % 0-2 Eos # 0.11 10^3u 0-0.7 Eos % 1.2 % 0-7 Lymph % 25.5 % 10-50 MCHC 35.0 G/DL 31.8-35.4 MCH 32.2 PG 27.0-31.2 Lymph # 2.36 10^3u 0.6-3.4 HGB 14.3 G/DL 12.2-18.1 HCT 40.9 % 37.7-53.7 CMP - 03/10/13 12:20 Osmo Calculated 269 MOSM 261-280 Sodium 139 MMOLL 137-145 T. Protein 7.8 G/DL 6.3-8.2 Potassium 4.1 MMOLL 3.6-5.0 T Bili 0.6 MG/DL 0.2-1.3 Calcium 9.9 MG/DL 8.4-10.2 BUN 10 MG/DL 7-21 Chloride 102 MMOLL 98-107 AST 31 U/L 15-46 ALT 25 U/L 7-56 Albumin 4.7 G/DL 3.5-5.0 A/G Ratio 1.5 RATIO 1.2-2.2 Bun/Creat 10.9 RATIO 7-25 Alk Phos 80 U/L 38-126 CO2 26 MMOLL 22-30 Glucose 103 MG/DL 65-110 Globulin 3.1 2.4-3.5 Creatinine 0.9 MG/DL 0.7-1.5 CPK - 03/10/13 12:20 CPK 78 U/L 30-170 Mycoplasma Antibody - 03/10/13 12:20 Mycoplasma Antibody POS Negative Urinalysis - 03/10/13 12:20 Glucose Negative Negative Leukocyte Negative Negative Nitrite Negative Negative pH 6.5 5.5-7.5 Urine Appearance Clear Clear Protein Negative Negative Ketones Negative Negative Urobilinogen 0.2 0.2-1.0 Urine RBC NONESEEN Specific [place] 1.020 1.010-1.020 Urine WBC NONESEEN Urine Bacteria NONESEEN Blood Negative Negative Color Yellow Yellow Squamous Epithelial Cells 2+ Bilirubin Negative Negative Strep Pneumo Ag, Urine - 03/10/13 12:20 Strep Pneumo Ag, Urine NEG Negative TSH - 03/10/13 12:20 TSH 2.37 UIUML 0.35-4.94 Mycoplasma Ab - IgM - 03/10/13 12:20 Mycoplasma Ab - IgM [facility] COMPLETE BLOOD COUNT - 09/11/13 11:00 Platelet 284 10^3u 142-424 MPV 9.9 FL 9.4-12.4 Upton # 0.73 10^3u 0.0-1.0 RBC 4.15 10^6u 4.04-6.13 Upton % 9.9 % 0-12 RDW 13.7 % 11.6-14.8 Neut # 4.81 10^3u 2.0-6.9 Neut % 65.1 % 37-80 WBC 7.39 10^3u 4.60-10.20 MCV 92.5 FL 80.0-97.0 Baso # 0.03 10^3u 0.0-0.1 Baso % 0.4 % 0-2 Eos # 0.14 10^3u 0-0.7 Eos % 1.9 % 0-7 Lymph % 22.7 % 10-50 MCHC 34.4 G/DL 31.8-35.4 MCH 31.8 PG 27.0-31.2 Lymph # 1.68 10^3u 0.6-3.4 HGB 13.2 G/DL 12.2-18.1 HCT 38.4 % 37.7-53.7 TSH - 09/11/13 11:00 TSH 1.72 UIUML 0.35-4.94 Vitamin B12 - 09/11/13 11:00 Vitamin B12 307 PG/ML 200-1000 CMP - 09/11/13 11:00 Osmo Calculated 263 MOSM 261-280 Sodium 137 MMOLL 137-145 T. Protein 6.8 G/DL 6.3-8.2 Potassium 3.9 MMOLL 3.6-5.0 T Bili 0.3 MG/DL 0.2-1.3 Calcium 9.2 MG/DL 8.4-10.2 BUN 10 MG/DL 7-21 Chloride 101 MMOLL 98-107 AST 28 U/L 15-46 ALT 34 U/L 7-56 Albumin 4.3 G/DL 3.5-5.0 A/G Ratio 1.8 RATIO 1.2-2.2 Bun/Creat 10.6 RATIO 7-25 Alk Phos 78 U/L 38-126 CO2 22 MMOLL 22-30 Glucose 90 MG/DL 65-110 Globulin 2.5 2.4-3.5 Creatinine 0.9 MG/DL 0.7-1.5 RPR - 09/11/13 11:00 RPR NON-REACTIVE NON-REACTIVE C Diff Toxin/Antigen - 09/13/13 10:15 C Diff Antigen NEG Negative C Diff Toxin NEG Negative Stool WBC - 09/13/13 10:15 Stool WBC NOTPRES Not present Sed Rate (ESR) - 09/29/13 12:48 Sed Rate (ESR) 27 MM/hr 5-20 C-Reactive Protein - 09/29/13 12:48 C-Reactive Protein 0.20 mg/dL <0.80 KIERA Screen - 09/29/13 12:48 KIERA Screen NEGATIVE NEGATIVE CMP - 10/09/13 16:32 Osmo Calculated 268 MOSM 261-280 Sodium 140 MMOLL 137-145 T. Protein 7.3 G/DL 6.3-8.2 Potassium 3.8 MMOLL 3.6-5.0 T Bili 0.5 MG/DL 0.2-1.3 Calcium 9.9 MG/DL 8.4-10.2 BUN 9 MG/DL 7-21 Chloride 102 MMOLL 98-107 AST 16 U/L 15-46 ALT 20 U/L 7-56 Albumin 4.4 G/DL 3.5-5.0 A/G Ratio 1.6 RATIO 1.2-2.2 Bun/Creat 11.2 RATIO 725 Alk Phos 88 U/L 38-126 CO2 27 MMOLL 22-30 Glucose 94 MG/DL 65-110 Globulin 2.8 2.4-3.5 Creatinine 0.8 MG/DL 0.7-1.5 Lipase - 10/09/13 16:32 Lipase 62 U/L 23-300 Amylase - 10/09/13 16:32 Amylase 89 U/L 30-110 H Pylori Antibody IGG - 10/09/13 16:32 H Pylori Antibody IGG NEG Negative COMPLETE BLOOD COUNT - 10/09/13 16:32 Platelet 300 10^3u 142-424 MPV 10.9 FL 9.4-12.4 Upton # 0.89 10^3u 0.0-1.0 RBC 4.36 10^6u 4.04-6.13 Upton % 8.3 % 0-12 RDW 13.5 % 11.6-14.8 Neut # 6.96 10^3u 2.0-6.9 Neut % 64.7 % 37-80 WBC 10.75 10^3u 4.60-10.20 MCV 91.5 FL 80.0-97.0 Baso # 0.02 10^3u 0.0-0.1 Baso % 0.2 % 0-2 Eos # 0.09 10^3u 0-0.7 Eos % 0.8 % 0-7 Lymph % 26.0 % 10-50 MCHC 34.3 G/DL 31.8-35.4 MCH 31.4 PG 27.0-31.2 Lymph # 2.79 10^3u 0.6-3.4 HGB 13.7 G/DL 12.2-18.1 HCT 39.9 % 37.7-53.7 Vitamin B12 - 10/05/14 11:45 Vitamin B12 1169 PG/ML 200-1000 COMPLETE BLOOD COUNT - 09/12/15 14:16 Platelet 297 10^3u 142-424 MPV 9.5 FL 9.4-12.4 Upton # 0.60 10^3u 0.0-1.0 RBC 3.94 10^6u 4.04-6.13 Upton % 7.6 % 0-12 RDW 14.1 % 11.6-14.8 Neut # 4.39 10^3u 2.0-6.9 Neut % 55.4 % 37-80 WBC 7.92 10^3u 4.60-10.20 MCV 88.1 FL 80.0-97.0 Baso # 0.04 10^3u 0.0-0.1 Baso % 0.5 % 0-2 Eos # 0.40 10^3u 0-0.7 Eos % 5.1 % 0-7 Lymph % 31.4 % 10-50 MCHC 33.1 G/DL 31.8-35.4 MCH 29.2 PG 27.0-31.2 Lymph # 2.49 10^3u 0.6-3.4 HGB 11.5 G/DL 12.2-18.1 HCT 34.7 % 37.7-53.7 CMP - 09/12/15 14:57 Osmo Calculated 267 MOSM 261-280 Sodium 138 MMOLL 136-145 T. Protein 6.9 G/DL 6.4-8.3 Potassium 3.7 MMOLL 3.5-5.1 T Bili 0.4 MG/DL 0.2-1.2 Calcium 9.4 MG/DL 8.4-10.2 BUN 16 MG/DL 7-26 Chloride 102 MMOLL 98-107 AST 18 U/L 5-34 ALT 9 U/L 0-55 Albumin 3.9 G/DL 3.5-5.0 A/G Ratio 1.3 RATIO 1.2-2.2 Bun/Creat 18 RATIO 7-25 Alk Phos 63 U/L 40-150 CO2 28 MMOLL 22-29 Glucose 89 MG/DL 70-99 Globulin 3.0 G/DL 2.4-3.5 Creatinine 0.9 MG/DL 0.6-1.3 Protime - 09/12/15 16:07 INR 0.9 Protime 9.7 SEC 9.6-11.9 APTT - 09/12/15 16:07 APTT 26.7 SEC 23-30 EKG - 09/17/15 03:35 EKG SMR Sed Rate (ESR) - 10/30/15 18:48 Sed Rate (ESR) 13 MM/hr 5-20 C-Reactive Protein (CRP) - 10/30/15 18:48 C-Reactive Protein (CRP) 0.03 MG/DL 0.00-0.50 Vitamin D 25 Hydroxy - 10/30/15 18:48 Vitamin D 25 Hydroxy 27.3 NG/ML 30-100 Vitamin B12 - 10/30/15 18:48 Vitamin B12 346 PG/ML 200-1000 KIERA Screen - 11/05/15 04:21 KIERA Screen POSITIVE NEGATIVE KIERA Titer 1:160 titer COMPLETE BLOOD COUNT - 03/25/16 15:20 Platelet 285 10^3u 142-424 MPV 9.5 FL 9.4-12.4 Upton # 0.60 10^3u 0.0-1.0 RBC 3.92 10^6u 4.04-6.13 Upton % 10.3 % 0-12 RDW 13.4 % 11.6-14.8 Neut # 3.10 10^3u 2.0-6.9 Neut % 53.0 % 37-80 WBC 5.85 10^3u 4.60-10.20 MCV 88.3 FL 80.0-97.0 Baso # 0.03 10^3u 0.0-0.1 Baso % 0.5 % 0-2 Eos # 0.21 10^3u 0-0.7 Eos % 3.6 % 0-7 Lymph % 32.6 % 10-50 MCHC 33.8 G/DL 31.8-35.4 MCH 29.8 PG 27.0-31.2 Lymph # 1.91 10^3u 0.6-3.4 HGB 11.7 G/DL 12.2-18.1 HCT 34.6 % 37.7-53.7 CMP - 03/25/16 15:48 Osmo Calculated 267 MOSM 261-280 Sodium 139 MMOLL 136-145 T. Protein 6.8 G/DL 6.4-8.3 Potassium 3.8 MMOLL 3.5-5.1 T Bili 0.4 MG/DL 0.2-1.2 Calcium 9.2 MG/DL 8.4-10.2 BUN 12 MG/DL 7-26 Chloride 106 MMOLL 98-107 AST 17 U/L 5-34 ALT 15 U/L 0-55 Albumin 3.8 G/DL 3.5-5.0 A/G Ratio 1.3 RATIO 1.2-2.2 Bun/Creat 13 RATIO 7-25 Alk Phos 72 U/L 40-150 CO2 27 MMOLL 22-29 Glucose 84 MG/DL 70-99 Globulin 3.0 G/DL 2.4-3.5 Creatinine 0.9 MG/DL 0.6-1.3 Sed Rate (ESR) - 03/25/16 15:48 Sed Rate (ESR) 15 MM/hr 5-20 Cardiac Panel - 03/25/16 15:48 CKMB 1.2 NG/ML <=6 Troponin I 0.00 NG/ML <=0.20 CPK 68 U/L 30-170 TSH - 03/25/16 15:48 TSH 2.21 UIUML 0.35-4.94 Magnesium - 03/25/16 15:48 Magnesium 2.2 MG/DL 1.6-2.8 Phosphorus - 03/25/16 15:48 Phosphorus 4.6 MG/DL 2.3-4.7 Vitamin D 25 Hydroxy - 03/25/16 16:31 Vitamin D 25 Hydroxy 24.3 NG/ML 30-100 EKG - 03/27/16 05:20 EKG SMR Lipid Profile - 03/27/16 09:30 HDL 71 MG/DL 40-60 VLDL 26 MG/DL 0-21 Triglyceride 129 MG/DL 0-149 Cholesterol 250 MG/DL 0-199 LDL Calculated 153 MG/DL 0-130 Insulin - 03/31/16 05:35 Insulin 4.5 uIU/m 2.0-19.6 Encounters ACCT No. Visit Date/Time Discharge Status Pt. Type Provider Facility Loc./Unit Complaint [id number] 06/27/2014 10:42:00 06/27/2014 23: 59:59 CLS Outpatient [id number] 06/27/2014 10:22:11 06/27/2014 23: 59:59 CLS Outpatient [id number] 06/26/2014 14:25:55 06/26/2014 23: 59:59 CLS Outpatient [id number] 06/19/2014 14:40:33 06/19/2014 23: 59:59 CLS Outpatient [id number] 06/19/2014 14:40:32 06/19/2014 14: 40:32 DIS Outpatient [id number] 06/19/2014 14:40:08 06/19/2014 14: 40:09 DIS Outpatient [id number] 06/26/2014 14:12:00 Document Registration [id number] 08/12/2017 05:37:00 08/12/2017 09:49:00 DIS Outpatient ALVARO LAGUNA DO Via [facility] PREOP BACK PAIN [id number] 08/23/2017 07:30:00 PEN Preadmit ALVARO LAGUNA DO Via [facility] BACK PAIN [id number] 05/05/2017 10:43:00 05/05/2017 23:59:00 DIS Outpatient Caity Hernandez Via [facility] Rad BACK PAIN [id number] 05/05/2017 09:53:00 05/05/2017 23:59:00 DIS Outpatient Caity Hernandez Via [facility] Rad BACK/HIP PAIN [id number] 05/12/2017 18:04:00 05/12/2017 18:04:00 DIS Outpatient VIVIAN CABA, [facility] LAB [id number] 03/17/2017 11:43:00 03/17/2017 11:43:00 DIS Outpatient VIVIAN CABA, [facility] RAD [id number] 01/14/2017 13:49:00 01/14/2017 13:49:00 DIS Outpatient LOCO CABA, [facility] RAD [id number] 11/04/2016 14:27:00 11/04/2016 14:27:00 DIS Outpatient VIVIAN CABA, [facility] RAD [id number] 10/27/2016 09:49:00 10/27/2016 09:49:00 DIS Outpatient VIVIAN CABA, [facility] LAB [id number] 10/12/2016 09:17:00 10/12/2016 09:17:00 DIS Outpatient VIVIAN CABA, [facility] RAD [id number] 09/29/2016 10:35:00 09/29/2016 10:35:00 DIS Outpatient VIVIAN CABA, [facility] LAB [id number] 09/12/2016 14:35:00 09/12/2016 14:35:00 DIS Outpatient VIVIAN CABA, [facility] OPTR [id number] 08/12/2016 11:27:00 08/12/2016 11:27:00 DIS Outpatient VIVIAN CABA, [facility] RAD [id number] 06/05/2016 10:13:00 06/05/2016 10:13:00 DIS Outpatient VIVIAN CABA, [facility] RAD [id number] 04/22/2016 13:16:00 04/22/2016 13:16:00 DIS Outpatient OLCO CABA, [facility] OTHER [id number] 03/27/2016 08:47:00 03/27/2016 08:47:00 DIS Outpatient VIVIAN CABA, [facility] OTHER [id number] 03/25/2016 14:31:00 03/25/2016 14:31:00 DIS Outpatient VIVIAN CABA, [facility] OTHER [id number] 01/29/2016 14:07:00 01/29/2016 14:07:00 DIS Outpatient VIVIAN CABA, [facility] OTHER [id number] 12/25/2015 12:59:00 12/25/2015 12:59:00 DIS Outpatient LCOO CABA, [facility] OTHER [id number] 11/01/2015 11:46:00 11/01/2015 11:46:00 DIS Outpatient VIVIAN CABA, [facility] OTHER [id number] 10/30/2015 15:38:00 10/30/2015 15:38:00 DIS Outpatient LOCO CABA, [facility] OTHER [id number] 10/16/2015 13:01:00 10/16/2015 13:01:00 DIS Outpatient LOCO CABA, [facility] OTHER [id number] 10/09/2015 13:07:00 10/09/2015 13:07:00 DIS Outpatient VIVIAN CABA, [facility] OTHER [id number] 09/12/2015 12:22:00 09/12/2015 12:22:00 DIS Outpatient VIVIAN CABA, [facility] OTHER [id number] 09/12/2015 12:22:00 09/12/2015 12:22:00 DIS Outpatient VIVIAN CABA, [facility] OTHER [id number] 02/20/2015 13:30:00 02/20/2015 13:30:00 DIS Outpatient LOCO CABA, [facility] OTHER [id number] 02/13/2015 09:30:00 02/13/2015 09:30:00 DIS Outpatient VIVIAN CABA, [facility] OTHER [id number] 02/06/2015 09:58:00 02/06/2015 09:58:00 DIS Outpatient LOCO CABA, [facility] OTHER [id number] 01/30/2015 12:57:00 01/30/2015 12:57:00 DIS Outpatient LOCO CABA, [facility] OTHER [id number] 01/15/2015 09:48:00 01/15/2015 09:48:00 DIS Outpatient VIVIAN CABA, [facility] OTHER [id number] 12/03/2014 08:47:00 12/03/2014 08:47:00 DIS Outpatient VIVIAN CABA, [facility] OTHER [id number] 10/05/2014 09:49:00 10/05/2014 09:49:00 DIS Outpatient VIVIAN CABA, [facility] OTHER [id number] 09/19/2014 12:54:00 09/19/2014 12:54:00 DIS Outpatient VIVIAN CABA, [facility] OTHER [id number] 07/08/2014 00:01:00 07/30/2014 15:50:00 DIS Outpatient DALTON CABA, [facility] OTHER [id number] 06/13/2014 08:25:00 06/13/2014 23:59:59 CLS Outpatient VIVIAN CABA, [facility] OTHER [id number] 06/10/2014 00:01:00 06/10/2014 23:59:59 CLS Outpatient DALTON CABA, [facility] OTHER [id number] 05/17/2014 14:30:00 06/09/2014 23:59:00 DIS Outpatient DALTON CABA, [facility] OTHER [id number] 04/04/2014 13:04:00 04/04/2014 13:04:00 DIS Outpatient VIVIAN CABA, [facility] OTHER [id number] 02/14/2014 10:49:00 02/14/2014 10:49:00 DIS Outpatient LUZ ELENA RAMIREZ MD, [facility] OTHER [id number] 11/27/2013 12:52:00 11/27/2013 12:52:00 DIS Outpatient VIVIAN CABA, [facility] OTHER [id number] 11/22/2013 10:15:00 11/22/2013 10:15:00 DIS Outpatient VIVIAN CABA, [facility] OTHER [id number] 10/12/2013 09:05:00 10/12/2013 09:05:00 DIS Outpatient VIVIAN CABA, [facility] OTHER [id number] 10/09/2013 16:31:00 10/09/2013 16:31:00 DIS Outpatient VIVIAN CABA, [facility] OTHER [id number] 09/29/2013 12:47:00 09/29/2013 12:47:00 DIS Outpatient VIVINA CABA, [facility] OTHER [id number] 09/19/2013 10:20:00 09/19/2013 10:20:00 DIS Outpatient VIVIAN CABA, [facility] OTHER [id number] 09/13/2013 10:14:00 09/13/2013 10:14:00 DIS Outpatient VIVIAN CABA, [facility] OTHER [id number] 09/11/2013 10:59:00 09/11/2013 10:59:00 DIS Outpatient VIVIAN CABA, [facility] OTHER [id number] 09/07/2013 07:50:00 09/07/2013 07:50:00 DIS Outpatient VIVIAN CABA, [facility] OTHER [id number] 07/06/2013 10:30:00 07/06/2013 10:30:00 DIS Outpatient VIVIAN CABA, [facility] OTHER [id number] 06/22/2013 16:00:00 06/22/2013 16:00:00 DIS Outpatient VIVIAN CABA, [facility] OTHER [id number] 06/08/2013 10:45:00 06/08/2013 23:59:59 CLS Outpatient VIVIAN CABA, [facility] OTHER [id number] 05/23/2013 13:29:00 05/23/2013 13:29:00 DIS Outpatient VIVIAN CABA, [facility] OTHER [id number] 05/15/2013 09:39:00 05/15/2013 09:39:00 DIS Outpatient VIVIAN CABA, [facility] OTHER [id number] 03/10/2013 12:07:00 03/10/2013 12:07:00 DIS Outpatient VIVIAN CABA, [facility] OTHER [id number] 11/07/2012 12:49:00 11/07/2012 12:49:00 DIS Outpatient VIVIAN CABA, [facility] OTHER [id number] 10/28/2012 10:30:00 10/28/2012 17:30:00 DIS Outpatient VIVIAN CABA, [facility] NS1 [id number] 10/28/2012 10:30:00 10/28/2012 10:30:00 DIS Outpatient VIVIAN CABA, [facility] OTHER [id number] 10/26/2012 07:39:00 10/26/2012 07:39:00 DIS Outpatient VIVIAN CABA, [facility] OTHER [id number] 08/12/2017 15:52:00 Document Registration [id number] 08/06/2017 10:35:00 Document Registration [id number] 08/09/2015 10:21:00 Document Registration [id number] 07/24/2011 10:40:00 Document Registration [id number] 07/21/2011 09:25:00 Document Registration [id number] 07/20/2011 12:12:00 Document Registration [id number] 07/13/2011 10:31:00 Document Registration [id number] 06/25/2011 08:22:00 Document Registration [id number] 03/25/2011 09:54:00 Document Registration [id number] 02/09/2011 10:19:00 Document Registration [id number] 11/14/2016 17:25:09 ACT Document Registration
[2017-08-23] MEDS ORDERED: CLINDAMYCIN 600 MG/50 ML IVPB 50 ML IV ONE (06:15)
[2017-08-23 06:20] VITALS: BP 107/82
[2017-08-23] MEDS ORDERED: CATHETER FLUSH 10 ML SYR IV PRN (06:45)
[2017-08-23] MEDS ORDERED: OXYC-471 PO (06:49)
[2017-08-23] MEDS ORDERED: VANCOMYCIN 1000 MG/VIAL ONE (06:56)
[2017-08-23] MEDS ORDERED: MIDAZOLAM 2 MG/2 ML (VERSED) VIAL ONE (06:57)
[2017-08-23] MEDS ORDERED: fentaNYL INJECTION 100 MCG/2 ML AMP ONE (06:57)
[2017-08-23] MEDS ORDERED: DEXMEDETOMIDINE 200 MCG/2 ML (PRECEDEX) VIAL IV ONE (06:58)
[2017-08-23] MEDS: LACTATED RINGERS 1,000 ML IV PRN ×2 (07:21→08:22)
[2017-08-23] MEDS ORDERED: BUP/EPI 0.5% 1:200,000 (SENSORCAINE) 30 ML VIAL ONE (07:22)
[2017-08-23] MEDS ORDERED: VANCOMYCIN 1000 MG/VIAL TOP ONE (07:30)
[2017-08-23] MEDS ORDERED: BACITRACIN 100,000 UNIT/NS 1000 ML POUR BOTTLE IR ONE ×2 (07:45)
[2017-08-23] MEDS ORDERED: SEVOFLURANE (ULTANE) 15 ML INHAL SOLN ONE ×4 (08:06→08:25)
[2017-08-23] MEDS ORDERED: ONDANSETRON 4 MG/2 ML (SDV) Z0FRAN ONE (08:06)
[2017-08-23] MEDS ORDERED: DEXAMETHASONE 10 MG/ML (DECADRON) 1 ML VIAL ONE (08:06)
[2017-08-23] MEDS ORDERED: LIDOCAINE PF 2% 5 ML (XYLOCAINE) VIAL ONE (08:06)
[2017-08-23] MEDS ORDERED: proPOfol 200 MG/20 ML (DIPRIVAN) VIAL IV ONE (08:06)
[2017-08-23] MEDS ORDERED: PHENYLEPHRINE 100 MCG/ML 10 ML (ANESTHESIA) SYR ONE (08:20)
[2017-08-23] MEDS ORDERED: PHENYLEPHRINE INJ 10 MG/ML (NEO-SYNEPHRINE 1%) ONE (08:20)
[2017-08-23] MEDS ORDERED: SUCCINYLCHOLINE INJ 100 MG/5 ML SYR ONE (08:20)
[2017-08-23] MEDS ORDERED: morphine INJ 4 MG/ML 1 ML (VIAL/SYRINGE) IVP PRN (08:45)
[2017-08-23] MEDS ORDERED: oxyCODONE/APAP 5/325MG (PERCOCET 5) TABLET PO PRN (08:45)
--- NOTE | 2017-08-23 08:46 | Discharge Inst-Simple/Standard ---
Discharge Inst-Standard Patient Instructions/Follow Up Plan of Care/Instructions/FU: follow up in clinic in 2 weeks keep incision covered clean and dry dont bend lift twist push or pull 5lb weight restriction Activity as Tolerated: No Discharge Diet: Regular Diet Return to The Hospital For: shortness of breath chest pain fever chills problems with strength, gait, coordination, balance, bowel or bladder fucntion or Lower extrimity numbness or tingling HEBER RODRIGUEZ Aug 23, 2017 08:46
--- NOTE | 2017-08-23 09:25 | Diagnostic Imaging Report ---
CLINICAL INDICATION: Dr. Curtis performed a permanent spinal cord stimulator with intraoperative fluoroscopy. EXAMINATION: Single limited intraoperative fluoroscopic x-ray of the thoracic spine. COMPARISON: MRI of the thoracic spine dated 05/05/2017. FINDINGS AND IMPRESSION: Single intraoperative fluoroscopic x-ray image of the thoracic spine is seen. There is no vertebral body labeled. Neurostimulator electrode paddle is seen overlying the thoracic spine region. Please see surgeon's report for more detail. Fluoroscopy was provided for surgeons and a total of 14.3 seconds and 1.44 mGy was provided. Dictated by: Dictated on workstation # [id number]
[2017-08-23 10:05] VITALS: BP 87/63
[2017-08-23 10:35] VITALS: BP 87/66
[2017-08-23 11:05] VITALS: BP 117/74
[2017-08-23] MEDS ORDERED: oxyCODONE/APAP 5/325MG (PERCOCET 5) TABLET PO ONE (11:15)
--- NOTE | 2017-08-23 12:48 | Anesthesia-General Post-Op ---
General Patient Condition Mental Status/LOC: Same as Preop Cardiovascular: Satisfactory Nausea/Vomiting: Absent Respiratory: Satisfactory Pain: Controlled Complications: Absent Post Op Complications Complications None Follow Up Care/Instructions Patient Instructions None needed. Anesthesia/Patient Condition Patient Condition Patient is doing well, no complaints, stable vital signs, no apparent adverse anesthesia problems. No complications reported per nursing. ALEKSANDRA FORRESTER CRNA Aug 23, 2017 12:48
--- NOTE | 2017-08-23 13:33 | OPERATIVE REPORT ---
DATE OF SERVICE: 08/23/2017 SURGEON: Alfonso Curtis DO. FISHER EEL SPEAR: JULIET Crystal. This is a medically necessary procedure. Assistance was necessary for retraction of vital neurovascular structures. Without an seo assistant, the procedure would not be possible. PREOPERATIVE DIAGNOSIS: Lumbar radiculopathy. POSTOPERATIVE DIAGNOSIS: Lumbar radiculopathy. PROCEDURE PERFORMED: 1. Placement of thoracic spinal cord stimulator paddle lead via thoracic laminotomy. 2. Placement of pulse generator. 3. Complex programming. COMPLICATIONS: None. SPECIMEN SENT: None. DRAINS PLACED: None. ANESTHESIA: General endotracheal tube anesthesia with local anesthetic. SPECIMEN SENT: None. HISTORY OF PRESENT ILLNESS: The patient is a very pleasant 57-year-old female who came to me after a very successful percutaneous stimulator trial. She achieved significant pain relief and wished to undergo the procedure. She understood the risks and benefits of permanent paddle lead placement. DESCRIPTION OF PROCEDURE: The patient was identified by name and wrist band in the preoperative holding area. Her operative site was signed and consent was signed. SCDs were placed. Neuro monitor was hooked up and antibiotics were started. She was taken to the operating room theater, placed under general endotracheal tube anesthesia and transferred to the operating room table in the prone position. She was prepped and draped in a sterile fashion. Formal timeout was conducted. AP x-ray was then brought in and marked out the pedicles at the indicated levels and then made a midline thoracic incision after infiltrating the skin and soft tissue with 0.5% Marcaine with epinephrine. I proceeded with a bilateral subperiosteal paraspinal muscular approach exposing the indicated levels. I then used a high speed daniel Kerrison rongeurs to perform a laminotomy at the T8-9 interspace. I gained access to the epidural space and placed a [employer] Penta lead in the midline position. I then hooked this up to the alexis with the [employer] rep and we coordinated the testing with the neuro certified histologic technician. We were able to achieve equal left and right lower extremity stimulation which verified the midline position of the lead. At this point, I made a left-sided lower lumbar flank incision. I then developed a pocket in the subcutaneous tissue with blunt digital dissection. I used a tunneler to tunnel the leads from the thoracic lead subcutaneously and bring it out of the flank incision. I hooked up a pulse generator. At this point, I buried the pulse generator with the lead into the flank incision. I tested this connection and the connection was successful. Next, I anchored the paddle lead into the thoracic fascia with the [employer] anchors. I irrigated both wounds thoroughly. I maintained hemostasis. I closed the wound in the usual layered fashion utilizing 0 Vicryl followed by 2-0 Vicryl followed by running 3-0 subcuticular stitch. I applied dressings. Took the patient in the supine position to the PACU where she awoke without incident. She tolerated the procedure well. The plan at this time is to discharge the patient today. She knows to see me in two weeks and is to avoid any bending, twisting, pushing, pulling. Keep her wound clean and dry, change her dressings daily. Please note neuro monitoring was stable throughout the procedure. 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
== END 2017-08-23 11:15 | disposition home or self-care (01) ==
LOC: SDC 05:59
PROVIDERS: ATTEND Orthopaedic Surgery
DX: M54.16 Radiculopathy, lumbar region (principal); Z11.2 Encounter for screening for other bacterial diseases; J44.9 Chronic obstructive pulmonary disease, unspecified; Z87.891 Personal history of nicotine dependence; Z79.899 Other long term (current) drug therapy; Z88.5 Allergy status to narcotic agent; Z88.1 Allergy status to other antibiotic agents; Z88.8 Allergy status to other drugs, medicaments and biological substances
CPT/HCPCS: 87081